=== PATIENT | female | born 1985 | race Caucasian/White ===

== ENCOUNTER 2020-06-28 08:33 | Outpatient (CLI) | payer BC, SELFPAY ==
[2020-07-01 21:07] LABS: SARS-CoV-2 RNA Undetected (Undetected); SARS-CoV-2 Specimen Source Nasopharynx
== END 2020-06-28 08:53 ==
PROVIDERS: PCP Physician Assistant; Visit Provider Physician Assistant
DX: Z20.828 Contact with and (suspected) exposure to other viral communicable diseases (principal)
CPT/HCPCS: U0003

== ENCOUNTER 2023-12-13 13:56 | Emergency (ER) | payer BC, SELFPAY ==
[2023-12-13] VITALS (26 sets, daily range): BP systolic 120–193; BP diastolic 67–110; PULSE 87–112; RESP 14–28; TEMP 36.7; O2SAT 96–100
--- NOTE | 2023-12-13 15:00 | RT.EKG_ITS ---
APPROVED REPORT Exam: Resting ECG Reason for Exam: HTN Patient Location: E HR:95 bpm ECG Measurements Heart Rate 95 AXIS ND 143 P 58 QRSd 82 QRS 47 QT 350 T 10 QTc 440 Conclusion Sinus rhythm 95 normal axis no stemi
--- NOTE | 2023-12-13 15:04 | ED.GENADUL_ITS ---
Discharge Plan Discharge Details Chief Complaint: GenMedical Primary Care Provider: Te Fan ED Provider: Helena Rutledge Home Meds and New Rx's Prescriptions: No Action etonogestrel-ethinyl estradiol [NuvaRing] 0.12-0.015 mg/24 hr ring 1 vag ring vaginal Q4W Rx Instructions: leave in place for 3 weeks of a 4-week cycle albuterol sulfate [ProAir HFA] 90 mcg/actuation HFA aerosol inhaler 2 puff inhalation Q6H PRN thyroid (pork) [[place] Thyroid] 60 mg tablet 60 mg PO DAILY ergocalciferol (vitamin D2) 1,250 mcg (50,000 unit) capsule 1,250 mcg PO .3x week insulin lispro [Humalog KwikPen Insulin] 100 unit/mL insulin pen 80 - 120 unit subcut TID insulin glargine U-300 conc [Toujeo Max U-300 SoloStar] 300 unit/mL (3 mL) insulin pen 30 unit subcut BID metformin 850 mg tablet 850 mg PO BID omeprazole 20 mg capsule,delayed release(DR/EC) 20 mg PO DAILY PRN famotidine 1 tab PO BID apple cider vinegar 1 tab PO DAILY HPI General Date/Time Provider Initiated Documentation: 12/13/23 14:48 . HPI Narrative: Miladys is a 38-year-old female with history of T1DM, GERD, and hypothyroidism who presents to the emergency department for evaluation of hypertension. She reports that her blood pressure was elevated at her last PCP appointment, so she has been checking it at home. Says her blood pressure has been consistently above 150, says that according to the chart he has been in the stage II hypertension category. Her PCP became worried and told her to come to the emergency department. She reports that she has had some headaches over the last week, says they have generalized headaches that are resolved with Tylenol. Denies vision changes, recent illness such as congestion, sore throat, cough, chest pain, change in baseline nausea/abdominal discomfort (is currently being worked up for gastroparesis), change in bowel or bladder function, rashes. She has a significant family history of cardiovascular disease, says her mother is on antihypertensives, but is not sure which ones. Related Data Home Medications Medication Instructions Recorded Confirmed albuterol sulfate 90 mcg/actuation 2 puff inhalation Q6H PRN 06/26/21 12/13/23 aerosol inhaler (ProAir HFA) ergocalciferol (vitamin D2) 1,250 1,250 mcg PO .3x week 06/26/21 12/13/23 mcg (50,000 unit) capsule etonogestrel 0.12 mg-ethinyl 1 vag ring vaginal Q4W 06/26/21 12/13/23 estradiol 0.015 mg/24 hr vaginal ring (NuvaRing) insulin glargine U-300 conc 300 30 unit subcut BID 06/26/21 12/13/23 unit/mL (3 mL) subcutaneous pen (Toujeo Max U-300 SoloStar) insulin lispro 100 unit/mL 80 - 120 unit subcut TID 06/26/21 12/13/23 subcutaneous pen (Humalog KwikPen (U-100) Insulin) metformin 850 mg tablet 850 mg PO BID 06/26/21 12/13/23 thyroid (pork) 60 mg tablet 60 mg PO DAILY 06/26/21 12/13/23 ([place] Thyroid) omeprazole 20 mg capsule,delayed 20 mg PO DAILY PRN 06/27/21 12/13/23 release apple cider vinegar 1 tab PO DAILY 12/13/23 12/13/23 famotidine 1 tab PO BID 12/13/23 12/13/23 Allergies Allergy/AdvReac Type Severity Reaction Status Date / Time No Known Allergies Allergy Verified 12/13/23 14:53 General Stated Complaint: GenMedical ERICA: 4 Review of Systems Narrative: see HPI Exam Const General: cooperative, healthy appearing, comfortable and no acute distress HENNM Head: normal to inspection Mouth: moist mucous membranes Resp Effort & Inspection: normal respiratory effort and able to speak in complete sentences Auscultation: clear to auscultation bilaterally Cardio Rate: regular rate Rhythm: regular rhythm GI Inspection: normal to inspection Palpation: soft and nontender Extrem General: no pedal edema Course Vital Signs Vital signs: Vital Signs Temperature 36.7 C 12/13/23 14:06 Pulse 112 H 12/13/23 14:06 Respiratory Rate 18 12/13/23 14:06 Blood Pressure 193/99 H 12/13/23 14:06 Pulse Oximetry 97 12/13/23 14:06 Temperature 36.7 C 12/13/23 14:50 Temperature Source Tympanic 12/13/23 14:50 Pulse 112 H 12/13/23 14:50 Respiratory Rate 16 12/13/23 14:51 Respiratory Effort Labored 12/13/23 14:52 Respiratory Depth Normal 12/13/23 14:51 Respiratory Pattern Normal 12/13/23 14:51 Blood Pressure 193/99 H 12/13/23 14:50 Blood Pressure Position Sitting 12/13/23 14:50 Pulse Oximetry 97 12/13/23 14:50 Oxygen Delivery Method Room Air 12/13/23 14:50 Oxygen Flow Rate 0 12/13/23 14:50 Lab/Test Results Lab/Test Results: Laboratory Tests Range/Units 12/13/23 15:07 WBC (4.4-10.8) 10^3/uL 7.76 RBC (3.93-5.22) 10^6/uL 4.90 Hgb (11.2-15.7) g/dL 14.4 Hct (36.0-46.0) % 44.0 MCV (80-95) fL 90 MCH (27.0-33.0) pg 29.4 MCHC (32.0-36.0) % 32.7 RDW (11.7-14.6) % 12.3 Plt Count (130-400) 10^3/uL 330 MPV (8.0-11.0) fL 10.4 Immature Gran % 0.3 Neutrophils % 60.4 Lymphocytes % 29.8 Monocytes % 4.4 Eosinophils % 4.5 Basophils % 0.6 Nucleated RBC % (0.0-0.3) % 0.0 Absolute Neutrophils (1.2-6.7) 10^3/uL 4.69 Absolute Lymphocytes (1.2-3.4) 10^3/uL 2.31 Absolute Monocytes (0.1-0.8) 10^3/uL 0.34 Absolute Eosinophils (0.0-0.7) 10^3/uL 0.35 Absolute Basophils (0.0-0.2) 10^3/uL 0.05 Sodium Cancelled Potassium Cancelled Chloride Cancelled Carbon Dioxide Cancelled Anion Gap Cancelled BUN Cancelled Creatinine Cancelled Est GFR (CKD-EPI 2020) Cancelled Glucose Cancelled Calcium Cancelled TSH Cancelled Medical Decision Making Miladys is a 38-year-old female with history of T1DM, GERD, and hypothyroidism who presents to the emergency department for evaluation of hypertension. She reports that her blood pressure was elevated at her last PCP appointment, so she has been checking it at home. Says her blood pressure has been consistently above 150, says that according to the chart he has been in the stage II hypertension category. Her PCP became worried and told her to come to the emergency department. She reports that she has had some headaches over the last week, says they have generalized headaches that are resolved with Tylenol. Denies vision changes, recent illness such as congestion, sore throat, cough, chest pain, change in baseline nausea/abdominal discomfort (is currently being worked up for gastroparesis), change in bowel or bladder function, rashes. She has a significant family history of cardiovascular disease, says her mother is on antihypertensives, but is not sure which ones. Physical exam very reassuring. Patient is alert and interactive, no acute distress. Easy work of breathing, lung sounds clear bilaterally. Normal heart sounds. Abdomen soft, nondistended, nontender to palpation. No obvious pedal edema. DDx includes was not limited to essential hypertension, target endorgan damage such as kidney dysfunction, thyroid dysfunction. No red flags concerning for intracerebral hemorrhage or heart failure. I independently interpreted the following tests: EKG reassuring, normal sinus rhythm with rate 95. No changes consistent with acute ischemia; normal VA and QT intervals. CBC reassuring. On arrival to the emergency department patient's blood pressure was very elevated at 193/99 with tachycardia, heart rate 112. She did appear anxious during assessment. After resting in room, blood pressure decreased to 141/71 with heart rate of 100. (previous notes indicate tachycardia of 100 bpm at PCP's office in 2018 and 112 at ENT visit in 2020) Quality:SDOH Health Related Social Needs: No Data to Display PFSH All Active Problems Abnormal auditory perception of both ears (Acute) Hypothyroidism (Chronic) Asthma (Chronic) Vitamin D deficiency (Acute) Fatigue (Acute) DM type 1 (diabetes mellitus, type 1) (Acute) Medical History Abnormal auditory perception of both ears Asthma DM type 1 (diabetes mellitus, type 1) Fatigue GERD (gastroesophageal reflux disease) Hypothyroidism Vitamin D deficiency Family History Mother Heart disease Diabetes Social History Smoking/Tobacco Use Status: Never Smoking risk assessment performed?: Yes Alcohol Intake: never Drug use: Never Substance use type: does not use PAWSS Have you Been Recently Intoxicated or Drunk Within the Last 30 days?: No Have you Ever Experienced Previous Episodes of Alcohol Withdrawal?: No Have you ever Experienced Withdrawal Seizures?: No Have you ever Experienced Delirium Tremens(DT)s?: No Have you ever undergone Alcohol Rehabilitation Treatment (i.e, inpt ot outpatient treatment programs)?: No Have you ever Experienced Blackouts?: No Have you ever Combined Alcohol with other Downers within the last 90 days?: No Have you ever Combined Alcohol with any other Substance of Abuse during the last 90 days?: No Result: 0
[2023-12-13 15:17] LABS: Abs Immature Grans 0.02 10^3/uL (0.0-0.06); Absolute Basophil Count 0.05 10^3/uL (0.0-0.2); Absolute Eosinophil Count 0.35 10^3/uL (0.0-0.7); Absolute Lymphocyte Count 2.31 10^3/uL (1.2-3.4); Absolute Monocyte Count 0.34 10^3/uL (0.1-0.8); Absolute Neutrophil Count 4.69 10^3/uL (1.2-6.7); Basophils % 0.6; Eosinophils % 4.5; HGB 14.4 g/dL (11.2-15.7); Immature Grans % 0.3; Lymphocytes % 29.8; MCH 29.4 pg (27.0-33.0); MCHC 32.7 % (32.0-36.0); MCV 90 fL (80-95); MPV 10.4 fL (8.0-11.0); Monocytes % 4.4; Neutrophils % 60.4; Platelet Count 330 10^3/uL (130-400); RDW 12.3 % (11.7-14.6); RDW-SD 40.4 fL; WBC 7.76 10^3/uL (4.4-10.8)
[2023-12-13 15:58] LABS: Bilirubin Negative (Negative); Blood Negative (Negative); Clarity Sl Cloudy (Clear); Glucose 100 mg/dL (Negative); Ketones Trace mg/dL (Negative); Leukocyte Esterase Trace (Negative); Nitrite Negative (Negative); Specific Gravity >= 1.030 (1.005-1.025)
[2023-12-13 16:10] LABS: RBC 0-2 HPF (0-2)
[2023-12-13 16:11] LABS: Bacteria Moderate HPF (Negative); C & S Indicated? No/Sq. Contamination; Casts Negative LPF (Negative); Crystals Negative HPF (Negative); Epithelial Cells Many HPF (Negative); Mucus Negative (Negative)
[2023-12-13 17:49] LABS: BUN 11 mg/dL (7-18); CREATININE 0.8 mg/dL (0.55-1.02); Calcium 8.9 mg/dL (8.5-10.1); Chloride 106 mmol/L (98-107); Estimated GFR 97.87 (mL/min/1.73m2); Glucose 84 mg/dL (74-106); Potassium 3.9 mmol/L (3.5-5.1); Sodium 143 mmol/L (136-145); TSH (W/Ref FT4) 3.92 uIU/mL (0.36-3.74)
[2023-12-13 18:05] LABS: FREE T4 0.78 ng/dL (0.76-1.46)
--- NOTE | 2023-12-14 08:00 | NUR.NOTE ---
Accessed pt chart to determine number of EKG orders. Duplicate order cancelled. Nursing Note:
== END 2023-12-13 18:16 | disposition home or self-care (01) ==
PROVIDERS: Nurse Practitioner Family; Emergency Provider Physician Assistant; PCP Physician Assistant
DX: E10.9 Type 1 diabetes mellitus without complications; Z86.79 Personal history of other diseases of the circulatory system; Z87.19 Personal history of other diseases of the digestive system; Z86.39 Personal history of other endocrine, nutritional and metabolic disease; Z82.49 Family history of ischemic heart disease and other diseases of the circulatory system; R51.9 Headache, unspecified; I10 Essential (primary) hypertension
CPT/HCPCS: 36415; 80048; 81025; 93005; 99283; 81003; 81015; 84439; 84443; 85025; 93010

== ENCOUNTER 2024-04-03 01:08 | Emergency (ER) | payer BC, SELFPAY ==
[2024-04-03 01:14] VITALS: BP 159/84; PULSE 84; RESP 16; TEMP 36.6; O2SAT 100
--- NOTE | 2024-04-03 01:20 | W.ED.GENAD ---
Discharge Plan Disposition Patient Disposition: Home Condition: Improving Discharge Details Clinical Impression: Calculus of ureterovesical junction (UVJ) Primary Care Provider: Te Fan ED Provider: Declan Bustos Holden Meds and New Rx's Prescriptions: New tamsulosin 0.4 mg capsule 0.4 mg PO DAILY Qty: 14 0RF oxycodone 5 mg tablet 5 mg PO Q8H PRN (Reason: pain) Qty: 6 0RF Continued etonogestrel-ethinyl estradiol [NuvaRing] 0.12-0.015 mg/24 hr ring 1 vag ring vaginal Q4W Rx Instructions: leave in place for 3 weeks of a 4-week cycle albuterol sulfate [ProAir HFA] 90 mcg/actuation HFA aerosol inhaler 2 puff inhalation Q6H PRN thyroid (pork) [[place] Thyroid] 60 mg tablet 60 mg PO DAILY ergocalciferol (vitamin D2) 1,250 mcg (50,000 unit) capsule 1,250 mcg PO .3x week insulin lispro [Humalog KwikPen Insulin] 100 unit/mL insulin pen 80 - 120 unit subcut TID insulin glargine U-300 conc [Toujeo Max U-300 SoloStar] 300 unit/mL (3 mL) insulin pen 30 unit subcut BID metformin 850 mg tablet 850 mg PO BID omeprazole 20 mg capsule,delayed release(DR/EC) 20 mg PO DAILY PRN famotidine 1 tab PO BID apple cider vinegar 1 tab PO DAILY losartan 50 mg tablet 50 mg PO DAILY Patient Comments: TAKE ONE TABLET BY MOUTH EVERY DAY pantoprazole 40 mg tablet,delayed release (DR/EC) 80 mg PO DAILY Patient Comments: TAKE ONE TABLET BY MOUTH EVERY DAY 30 MIN BEFORE SUPPER rosuvastatin 10 mg tablet 10 mg PO DAILY Patient Comments: TAKE ONE TABLET BY MOUTH AT BEDTIME Discharge Instructions Instructions: Kidney stones in adults, Taking Opioids Safely, Opioids for Short-Term Treatment of Pain ED Additional Instructions: You were seen in the ED for sudden onset of right-sided pain which was found to be a kidney stone in the distal ureter. There is no evidence of infection. Please take the tamsulosin daily to try to help with stone passage. Drink plenty of fluids to stay hydrated. Strain your urine so that you know when the stone has passed. Take acetaminophen 1 g every 8 hours [id number]. Use oxycodone only if needed for severe pain. Follow-up with primary care or if no stone passage by end of the week urology. Return to the ED for any worsening pain, fever, persistent vomiting, other concerns. Referrals: Paulo Nuñez MD [ [facility] STAFF PHYSICIAN] - Te Fan [Primary Care Provider] - [facility] General Mode of arrival: ambulatory. Date/Time Provider Initiated Documentation: 04/03/24 01:20. Limitations to Documentation: no limitations. Information obtained by: patient. HPI Narrative: Patient presents to ED with right back and flank pain now radiating to the right lower quadrant. Patient with onset of symptoms at around 9 or 10 PM this evening. Pain is sharp and stabbing in nature and becoming more severe. It is associated with nausea and vomiting. She is reporting urinary frequency and urgency but no dysuria or hematuria. Denies any fever, chills, cough, chest pain, shortness of breath. No prior history of renal colic. Related Data Home Medications Medication Instructions Recorded Confirmed albuterol sulfate 90 mcg/actuation 2 puff inhalation Q6H PRN 06/26/21 04/03/24 aerosol inhaler (ProAir HFA) ergocalciferol (vitamin D2) 1,250 1,250 mcg PO .3x week 06/26/21 04/03/24 mcg (50,000 unit) capsule etonogestrel 0.12 mg-ethinyl 1 vag ring vaginal Q4W 06/26/21 04/03/24 estradiol 0.015 mg/24 hr vaginal ring (NuvaRing) insulin glargine U-300 conc 300 30 unit subcut BID 06/26/21 04/03/24 unit/mL (3 mL) subcutaneous pen (Toujeo Max U-300 SoloStar) insulin lispro 100 unit/mL 80 - 120 unit subcut TID 06/26/21 04/03/24 subcutaneous pen (Humalog KwikPen (U-100) Insulin) metformin 850 mg tablet 850 mg PO BID 06/26/21 04/03/24 thyroid (pork) 60 mg tablet 60 mg PO DAILY 06/26/21 04/03/24 ([place] Thyroid) omeprazole 20 mg capsule,delayed 20 mg PO DAILY PRN 06/27/21 04/03/24 release apple cider vinegar 1 tab PO DAILY 12/13/23 04/03/24 famotidine 1 tab PO BID 12/13/23 04/03/24 losartan 50 mg tablet 50 mg PO DAILY 04/03/24 04/03/24 oxycodone 5 mg tablet 5 mg PO Q8H PRN pain #6 tabs 04/03/24 pantoprazole 40 mg tablet,delayed 80 mg PO DAILY 04/03/24 04/03/24 release rosuvastatin 10 mg tablet 10 mg PO DAILY 04/03/24 04/03/24 tamsulosin 0.4 mg capsule 0.4 mg PO DAILY #14 caps 04/03/24 Previous Rx's Medication Instructions Recorded oxycodone 5 mg tablet 5 mg PO Q8H PRN pain #6 tabs 04/03/24 tamsulosin 0.4 mg capsule 0.4 mg PO DAILY #14 caps 04/03/24 Allergies Allergy/AdvReac Type Severity Reaction Status Date / Time No Known Allergies Allergy Verified 04/03/24 01:19 General Stated Complaint: FlankPain ERICA: 3 Review of Systems Narrative: Per HPI Exam Narrative Exam Narrative: Const: Obese female in NAD but does appear pale and uncomfortable. VS per triage. HEENT: NC/AT. Normal facial exam. Neck: Supple. Trachea midline. Lungs: Normal respiratory effort. Lungs are clear. Cor: RRR without murmur. Good radial pulses. GI: Soft/ND. Mildly tender right lower quadrant no guarding or rebound. Neuro: A+O x 3. Normal speech, mentation, gait. Cranial nerves II - XII grossly intact. No gross motor or sensory deficit. Ext: No C/C/E. Course Vital Signs Vital signs: Vital Signs Temperature 98 F 04/03/24 01:14 Pulse 84 04/03/24 01:14 Respiratory Rate 16 04/03/24 01:14 Blood Pressure 159/84 H 04/03/24 01:14 Pulse Oximetry 100 04/03/24 01:14 Temperature 98 F 04/03/24 01:14 Temperature Source Temporal Artery Scan 04/03/24 01:14 Pulse 84 04/03/24 01:14 Respiratory Rate 16 04/03/24 01:14 Blood Pressure 159/84 H 04/03/24 01:14 Pulse Oximetry 100 04/03/24 01:14 Oxygen Delivery Method Room Air 04/03/24 01:14 Oxygen Flow Rate 0 04/03/24 01:14 Pain Level 10 04/03/24 01:14 Medical Decision Making Patient presenting to ED with acute onset of right back and flank pain now radiating to the right lower quadrant with associated nausea/vomiting. She appears pale and uncomfortable. She is minimally tender in the right lower quadrant. Symptoms consistent with renal colic, less likely pyelonephritis. Consider ovarian torsion but pain seems much higher than pelvis. Unlikely to be appendicitis. IV established and fluids started. Pain meds and antiemetics given. Laboratory studies and CT scan ordered. Patient's laboratory studies with a white count of 14.95. Hemoglobin is normal. Kidney function is normal. Glucose at 198 with a slight anion gap at 13.7. Liver function and lipase normal. negative. Patient with continued pain despite a dose of morphine and fluids. Ordered for ketorolac pending results of CT which was completed. CT scan per preliminary radiology report with a 3 to 4 mm UVJ stone on the right with mild hydro. Urinalysis with blood only no evidence of infection. Pain improved with ketorolac. Tamsulosin ordered. Patient would like to try to go home and see if she can pass stone on her own. Will hold off on further nonsteroidals as she is recently diagnosed with Nava's esophagus and is on 80 of pantoprazole. Acetaminophen [id number]. Tamsulosin daily. Oxycodone as needed for severe pain. Strain urine and drink plenty of fluids. Follow-up with urology end of week if she has not yet passed her stone. Return precautions provided. Lab Data Lab results reviewed: Yes I reviewed the patient's lab results. PFSH All Active Problems (Updated 04/03/24 @ 04:22 by Declan Bustos MD) Calculus of ureterovesical junction (UVJ) (Acute) Abnormal auditory perception of both ears (Acute) Vitamin D deficiency (Acute) Fatigue (Acute) Medical History Hypertension Hyperlipidemia DM type 1 (diabetes mellitus, type 1) Asthma Hypothyroidism GERD (gastroesophageal reflux disease) Family History Mother Heart disease Diabetes Social History Smoking/Tobacco Use Status: Never Smoking risk assessment performed?: Yes Alcohol Intake: never Drug use: Never Substance use type: does not use
--- NOTE | 2024-04-03 01:30 | DI.CT_ITS ---
Exam(s) CT RENAL COLIC WO EXAM: CT RENAL COLIC WO CLINICAL HISTORY: right back/flank pain radiating to front. TECHNIQUE: Imaging Protocol: Axial computed tomography images with coronal and sagittal reformatted images were created and reviewed. CONTRAST MATERIAL: Noncontrast COMPARISON: No exams were available for comparison FINDINGS: ABDOMEN: Lung Bases: Normal where visualized. Small hiatal hernia. Liver: Normal attenuation. No measurable mass. Gallbladder and biliary tract: No radiodense calculus or dilation. Pancreas: Normal density, no calcifications or inflammatory process. Spleen: Normal. Kidneys: Normal size, contour and axis. Four millimeter stone at the right ureteral with vesicle junc tion causing mild right hydronephrosis. No additional calculi are identified no masses seen. Adrenal glands: No masses seen. Abdominal Aorta: Abdominal portion non-dilated. Soft tissues: Unremarkable. PELVIS: Bladder: Nearly empty, not evaluated. No evidence of stones.No visible mass. Bowel: No obstruction or bowel wall thickening. Reproductive: Unremarkable. Peritoneal cavity: No ascites, collection or mesenteric inflammatory response. Bones: No fracture or destructive lesion. Degenerative disc changes noted at L5-S1. IMPRESSION: 4 millimeter calculus at the right ureteral junction causing mild hydronephrosis. RADIATION DOSE DELIVERED: Total DLP DATA REPOSITORY: All CT scans at this facility are submitted to the National Radiology Data Registry (NRDR) Dose Index Registry (DIR) with the [employer] (A[employer]). RADIATION OPTIMIZATION: All CT scans at this facility use at least one of these dose optimization te chniques: automated exposure control; mA and/or kV adjustment per patient size (includes targeted exa ms where dose is matched to clinical indication); or iterative reconstruction.
[2024-04-03 01:32] VITALS: O2SAT 99
[2024-04-03 01:40] VITALS: O2SAT 99
[2024-04-03 01:56] VITALS: O2SAT 98
[2024-04-03] MEDS: MORPHine 4 MG/ML SYR IVP (02:39)
[2024-04-03] MEDS: Ondansetron 4 MG/2 ML VIAL IVP (02:39)
[2024-04-03] MEDS: Lactated Ringers 1,000 ML 1000 ML IV (02:39)
[2024-04-03 02:53] LABS: Lipase 23 U/L (16-77)
[2024-04-03 02:56] LABS: HCG Qual (Serum) Negative
[2024-04-03 02:57] LABS: ALT 32 U/L (14-59); AST 21 U/L (15-37); Albumin 3.9 g/dL (3.4-5.0); Alkaline Phosphatase 97 U/L (46-116); Anion Gap 13.7 mmol/L (3-11); BUN 14 mg/dL (7-18); Bilirubin, Total 0.4 mg/dL (0.2-1.0); CO2 24.3 mmol/L (21.0-32.0); Calcium 9.2 mg/dL (8.5-10.1); Chloride 105 mmol/L (98-107); Estimated GFR 74.88 (mL/min/1.73m2); Glucose 198 mg/dL (74-106); Potassium 3.8 mmol/L (3.5-5.1); Sodium 143 mmol/L (136-145); Total Protein 7.9 g/dL (6.4-8.2)
[2024-04-03] MEDS: Ketorolac 15 MG/ML VIAL IVP (03:03)
--- OUTSIDE RECORDS SUMMARY | 2024-04-03 03:17 | XMS_ITS | Patient Health Record ---
Author Name Unknown Organization [facility] Address [address] [place] [address] Care Team Providers Care Sealer Sander Name Role Phone Liz Mcdonough Primary Care Provider Obie Boggs Unavailable [phone] Allergies No Known Allergies Results Component Value Reference Range Notes T3, FREE Reviewed date:07/01/2023 02:18:54 PM Interpretation: Performing Lab: Notes/Report: T3 FREE 6.2 2.8-5.3 pg/mL TESTING PERFORMED OR REFERRED BY: The [address] [address] T4, FREE Reviewed date:07/01/2023 02:19:01 PM Interpretation: Performing Lab: Notes/Report: T4, FREE 1.3 0.8-2.2 ng/dL TESTING PERFORMED OR REFERRED BY: The [address] [address] TSH Reviewed date:07/01/2023 02:19:09 PM Interpretation: Performing Lab: Notes/Report: The results of this assay can be falsely lowered due to the consumption of Biotin. TSH 1.05 0.47-4.68 mIU/L TESTING PERFORMED OR REFERRED BY: The [address] [address] COMPREHENSIVE METABOLIC PA LIZ Reviewed date:07/01/2023 02:17:35 PM Interpretation: Performing Lab: Notes/Report: Lipid panel Reviewed date:07/01/2023 02:17:44 PM Interpretation: Performing Lab: Notes/Report: a1c Reviewed date:07/01/2023 02:19:21 PM Interpretation: Performing Lab: Notes/Report: VITAMIN B12 Reviewed date:01/29/2024 03:41:55 PM Interpretation: Performing Lab: Notes/Report: VITAMIN B12 447 211-911 pg/mL TESTING PERFORMED OR REFERRED BY: The [address] [address] VITAMIN D TOTAL, 25 OH Reviewed date:01/29/2024 03:41:55 PM Interpretation: Performing Lab: Notes/Report: VITAMIN D TOTAL 32 30-100 ng/mL Vitamin D 25,OH Interpretive Ranges: ------ Deficiency: <10.0 ng/mL Insufficiency: 10.0 - 30.0 ng/mL Sufficiency: 30.0 - 100.0 ng/mL Toxicity: >100.0 ng/mL TESTING PERFORMED OR REFERRED BY: The [address] [address] COMPREHENSIVE METABOLIC PA LIZ Reviewed date:01/29/2024 03:41:55 PM Interpretation: Performing Lab: Notes/Report: Patient Fasting?:N Lipid panel Reviewed date:01/29/2024 03:41:55 PM Interpretation: Performing Lab: Notes/Report: T4, FREE Reviewed date:01/29/2024 03:41:55 PM Interpretation: Performing Lab: Notes/Report: T4, FREE 1.3 0.8-2.2 ng/dL TESTING PERFORMED OR REFERRED BY: The [address] [address] a1c Reviewed date:01/29/2024 03:41:55 PM Interpretation:6.9 Performing Lab: Notes/Report: TSH Reviewed date:01/29/2024 03:41:55 PM Interpretation: Performing Lab: Notes/Report: The results of this assay can be falsely lowered due to the consumption of Biotin. TSH 1.05 0.47-4.68 mIU/L TESTING PERFORMED OR REFERRED BY: The [address] [address] T3, FREE Reviewed date:01/29/2024 03:41:55 PM Interpretation: Performing Lab: Notes/Report: T3 FREE 6.8 2.8-5.3 pg/mL TESTING PERFORMED OR REFERRED BY: The [address] [address] MICROALBUMIN Reviewed date:01/29/2024 03:41:55 PM Interpretation: Performing Lab: Notes/Report: CREATININE, UR 210.4 See Note mg/dL NOTE: Reference range not established URINE ALBUMIN TO CREATININE RATIO 10 <30 ug/mg Creatinine Urine Albumin/Creatinine Ratio: Normal: <30 ug/mg Creatinine Moderately increased albuminuria: 30-300 ug/mg Creatinine Severely increased albuminuria: >300 ug/mg Creatinine TESTING PERFORMED OR REFERRED BY: The [address] [address] a1c Reviewed date:09/28/2023 05:36:02 PM Interpretation: Performing Lab: Notes/Report: VITAMIN D TOTAL, 25 OH Reviewed date:07/01/2023 02:14:39 PM Interpretation: Performing Lab: Notes/Report: VITAMIN D TOTAL 33 30-100 ng/mL Vitamin D 25,OH Interpretive Ranges: ------ Deficiency: <10.0 ng/mL Insufficiency: 10.0 - 30.0 ng/mL Sufficiency: 30.0 - 100.0 ng/mL Toxicity: >100.0 ng/mL TESTING PERFORMED OR REFERRED BY: The [address] [address] NUCLEAR MED : Gastric Emptyi ng Scan Reviewed date:11/22/2023 02:22:30 PM Interpretation: Performing Lab: Notes/Report: Reason For Referral Reason Note in chart ---- L lluvia standing type 1 diabetes diagnosis now with mildly delayed gastric emptying. We have not started any medication. Pt with many questions about disease course and potential treatments. Diagnosis 1 Delayed gastric empt yifan (K30) Referral Organization [facility] Referring Provider First Name Liz Referring Provider Last Name Sharonda Referring Provider Speciality Family Med icine Referred Provider [place], [facility] roenterology Referred Provider Specialty Gastroentero logy General Notes Liz Mcdonough 024 02:45:53 PM > referral faxed Baron STACY Jasmina 12/17/2023 12:34:37 PM >lmom for update [phone]., Marii Draper 01/10/2024 04:38:30 PM >Pt was seen 12/28/2023 note in chart Referral Priority Routine Referral Appointment Date 12/28/2023 Reason SCHED 01/31/24--- Lo ng standing type 1 diabetes diagnosis now with mildly delayed gastric emptying. We have not started any medication. Pt with many questions about disease course and potential treatments. Diagnosis 1 Delayed gastric empt yifan (K30) [facility]erral Organization [facility] Referring Provider First Name Liz Referring Provider Last Name Sharonda Referring Provider [facility] Referred Provider [facility], Gastroenterology Referred Provider Specialty Gastroentero logy General Notes Marii Draper 0 11/29/2023 05:49:50 PM >Where would you like me to send this referral? It doesnt show the facility. [facility] or [facility]?, Liz Mcdonough 11/30/2023 09:39:10 AM >Did my note get deleted? I faxed it last night and I actually included the link to the practice where I sent it in my annotation so that this would not happen. [email or web address] Unless the fax failed we should not need to send. Baron STACY Jasmina 11/30/2023 10:27:43 AM >Note was erased, referral already faxed successfully, added [facility] in [place].Baron Jasmina 12/17/2023 03:20:36 PM >SCHED 01/31/24 AT 1:30 Referral Priority Routine Referral Appointment Date 01/31/2024 Medications Medication SIG (Take, Route, Frequency, Duration) Notes Start Date End Date Status Insulin Syringe-Needle U-100 31G X 5/16 1 ML as directed with humalog subcutaneously three times a day for 30 days 12/29/2019 Active Toujeo SoloStar 300 UNIT/ML 48 units Subcutaneous daily for 84 days Active Cetirizine HCl 10 MG 1 tablet Orally Onc e a day for 30 day(s) Active Winston Thyroid 60 MG 1 tablet Orally six days a week for 90 days 05/21/2023 Active Ondansetron HCl 4 MG 1 tablet Orally reynold ry 6 hours as needed for nausea for 5 days 11/26/2023 Active Ergocalciferol 06223 UNIT 1 capsule Orally Twice monthly for 84 days 09/23/2020 03/06/2025 Active Pantoprazole Sodium 40 MG 1 tablet Orally every evening 01/08/2024 Active Dexcom G6 Asp Net Mvc Developer - as directed for 30 day(s) 03/19/2022 Active BD Pen Needle Mini U/F 31G X 5 MM as directed with toujeo pen subcutaneously daily for 90 days 04/13/2019 Active Omeprazole 20 MG 1 capsule 30 minutes before morning meal Orally Once a day 10/24/2020 Active OneTouch Verio - as directed In Vitro for TID testing for 90 days Active Omnipod 5 G6 Intro (Gen 5) - as directed for 30 days 01/11/2024 Acti ve Rosuvastatin Calcium 10 MG 1 tablet Orally Once a day at bedtime for 90 days 07/09/2023 Active Losartan Potassium 50 MG TAKE ONE TABLET BY MOUTH EVERY DAY Oral Active Famotidine 20 MG 1 tablet Orally twic e day 08/27/2022 Active Dexcom G6 Transmitter - as directed as d irected for 90 days 03/19/2022 Active Albuterol Sulfate HFA 108 (90 Base) MCG/ACT 1-2 puffs as needed Inhalation every 4 hrs for 30 days 01/11/2024 Active NuvaRing 0.12-0.015 MG/24HR 1 ring Vaginal for 3 weeks then remove for 1 week prior to placing new ring for 84 days Active metFORMIN HCl 850 MG 1 tablet with a ranjan l Orally twice a day for 90 days Active Dexcom G6 Sensor - as directed as direc julisa for 90 days 07/10/2022 Active Multivitamin - 1 tablet Orally Once a day for 30 day(s) Not-Taking Omnipod 5 G6 Pod (Gen 5) - change every 48-72 hours, for use with Humalog dosing for 90 days 01/11/2024 Active HumaLOG 100 UNIT/ML 80-120 units Subcutaneous daily for 90 days Active OneTouch Douglas Apodaca Active Immunizations Vaccine Route Administration Date Status Comme nts Tdap Unknown 05/26/2013 Administered Tdap IM Intramuscular 01/11/2024 Administered Pneumococcal PPV 23 (adult) Unknown 08/15/2004 Administered INFLUENZA ADULT SINGLE DOSE IM Intramuscular 09/30/2018 Administered INFLUENZA ADULT SINGLE DOSE IM Intramuscular 07/14/2019 Administered INFLUENZA ADULT SINGLE DOSE Unknown 09/22/2020 Administered Social History Tobacco Use: Social History Observation Description Date Details (start date - stop date) Never Smoker NA - NA TOBACCO Question Answer Notes STATUS Never smoker Problems Problem Type SNOMED Code ICD Code Onset Dates Problem Status W/U Status Risk Notes Problem Hyperglycemia due to type 1 diabetes mellitus (026301423009224) Type 1 diabetes mellitus with hyperglycemia (E10.65) Active confirmed Problem Type I diabetes mellitus without complication (686934309) Type 1 diabetes mellitus without complications (E10.9) Active confirmed Problem 360071574 Mixed hyperlipidemia (E78.2) Active confirmed Problem Polyneuropathy (74096103) Polyneuropathy, unspecified (G62.9) Active confirmed Problem Eustachian tube disorder (95521132) Unspecified Eustachian tube disorder, left ear (H69.92) Active confirmed Problem Noncompliance with medication regimen (finding) (813267128) Patient's other noncompliance with medication regimen (Z91.14) Active confirmed Problem Fatigue (77063279) -Fatigue (R53.83) Active con firmed Problem 096930917972908 BMI 30.0-34.9 (E66.9) Active confirmed Problem 316229747 GERD without esophagitis (K21.9) Active confirmed Problem Vitamin D deficiency (50763308) Vitamin D deficiency (E55.9) Active confirmed Problem Mild intermittent asthma (976757197) Mild intermittent asthma without complication (J45.20) Active confirmed Problem Long-term current use of insulin (215191872) terminal operator current use of insulin (Z79.4) Active confirmed Problem 0896343962857 Tinnitus of both ears (H93.13) Active confirmed Problem Muscle spasm (67974372) Muscle spasm (M62.838) Active confirmed Problem 87070091 Non-seasonal allergic rhinitis, unspecified trigger (J30.89) Active confirmed Problem Mild intermittent asthma (940845727) Asthma, mild intermittent (J45.20) Active confirmed Problem Hypothyroidism (22186949) Hypothyroidism, secondary (E03.8) Active confirmed Problem 955055521 Delayed gastric emptying (K30) Active confirmed Problem Adult health examination (740103175) -Health Maintenance (Z00.00) Active confirmed Problem Finding of therapeutic drug level (970274087) -Medication Maintenance (Z51.81) Active confirmed Problem 319962420 Decreased hearing, unspecified laterality (H91.90) Active confirmed Problem 67066935 Inattention (R41.840) Active confirmed Problem 744291173 Contracture, palmar fascia (M72.0) Active confirmed Problem 76518526 Primary hypertension (I10) Active confirmed Vital Signs Blood pressure diastolic 80 mm Hg 01/11/2024 Height 63.5 in 01/11/2024 Blood pressure systolic 135 mm Hg 01/11/2024 Weight 200 lbs 01/11/2024 BMI 34.87 kg/m2 01/11/2024 Encounters Encounter Location Date Provider Diagnosis [facility] [address] [place] [address] 04/07/2023 Liz Sharonda Type 1 diabetes mellitus with hyperglycemia E10.65 [facility] [address] [place] [address] 05/21/2023 [place] [facility] [address] [place] [address] 06/06/2023 Obie Boggs [facility] [address] [place] [address] 07/19/2023 Liz Fierroato [facility] [address] [place] [address] 11/22/2023 Lizdania FierroSharonda [facility] [address] [place] [address] 12/09/2023 Lizdania FierroSharonda [facility] [address] [place] [address] 01/08/2024 Lizdania FierroSharonda GERD without esophagitis K21.9 [facility] [address] [place] [address] 04/07/2023 Liz Sharonda [facility] [address] [place] [address] 05/20/2023 Liz Sharonda [facility] [address] [place] [address] 07/09/2023 Liz Sharonda [facility] [address] [place] [address] 07/22/2023 Liz Sharonda [facility] [address] [address] 10/01/2023 Liz Sharonda [facility] [address] [address] 10/17/2023 Liz Sharonda Type 1 diabetes mellitus with hyperglycemia E10.65 [facility] [address] [address] 10/23/2023 Liz Sharonda Hypothyroidism, secondary E03.8 [facility] [address] [address] 10/23/2023 Liz Sharonda [facility] [address] [address] 11/26/2023 Liz Sharonda [facility] [address] [address] 12/30/2023 Liz Sharonda Type 1 diabetes mellitus with hyperglycemia E10.65 and Mixed hyperlipidemia E78.2 [facility] [address] [address] 03/14/2024 Liz Sharonda Type 1 diabetes mellitus with hyperglycemia E10.65 [place] [address] [address] 01/11/2024 Liz Sharonda -Routine Exam Adult Z00.00 ; GERD without esophagitis K21.9 ; Type 1 diabetes mellitus with hyperglycemia E10.65 ; Hypothyroidism, secondary E03.8 ; Vitamin D deficiency E55.9 ; Mixed hyperlipidemia E78.2 ; Polyneuropathy, unspecified G62.9 ; Encounter for hepatitis C screening test for low risk patient Z11.59 ; -Immunization Z23 ; Primary hypertension I10 ; Uses vaginal contraceptive ring Z78.9 and Delayed gastric emptying K30 [place] [address] [employer] [address] [facility] [address] [place] [address] 07/09/2023 Liz Sharonda Type 1 diabetes mellitus with hyperglycemia E10.65 ; Mixed hyperlipidemia E78.2 ; Hypothyroidism, secondary E03.8 ; GERD without esophagitis K21.9 and Uses vaginal contraceptive ring Z78.[address] [place] [address] 10/14/2023 Liz Mcdonough Type 1 diabetes mellitus with hyperglycemia E10.65 and Chronic nausea R11.0 [place] [address] [address] [place] [address] 11/26/2023 Liz Mcdonough Delayed gastric emptying K30 Assessments Encounter Date Diagnosis (ICD Code) Assessment Notes Treatment Notes Treatment Clinical Notes 04/07/2023 Type 1 diabetes mellitus with hyperglycemia (ICD-10 - E10.65) 07/09/2023 Type 1 diabetes mellitus with hyperglycemia (ICD-10 - E10.65) will increase to 48 units on Toujeo to help get her A1c closer to goal without risking hypoglycemia. Will continue with her usual correction factor. She is considering so would have her reach out to OB in her area that does higher risk pregnancies because of her diabetes. Medication indication is reviewed, and patient questioned re side effects; Effectiveness assessed through history, and made active decision, with patient engagement to continue this treatment. Alternatives were discussed where applicable. 07/09/2023 Mixed hyperlipidemia (ICD-10 - E78.2) reviewed labs and recommended statin, recommended take CoQ10 60mg For patient's new medication(s) the dosing instructions, indications for use, and possible side effects were reviewed, and patient acknowledged an understanding of this information. 01/08/2024 GERD without esophagitis (ICD-10 - K21.9) 03/14/2024 Type 1 diabetes mellitus with hyperglycemia (ICD-10 - E10.65) 10/14/2023 Type 1 diabetes mellitus with hyperglycemia (ICD-10 - E10.65) She will work on better monitoring of blood sugars right after eating to see if we need to make adjustments in her correction factor/carb calculations since she is reluctant to increase long acting insulin due to prior low blood sugar. She will look at carb levels in her foods and continue working with advanced research programs director recommendations. 10/14/2023 Chronic nausea (ICD-10 - R11.0) This could be early presentation of gastroparesis so will check gastric emptying study to see if this can identify any issues. 10/17/2023 Type 1 diabetes mellitus with hyperglycemia (ICD-10 - E10.65) 12/30/2023 Type 1 diabetes mellitus with hyperglycemia (ICD-10 - E10.65) 11/26/2023 Delayed gastric emptying (ICD-10 - K30) Pt in [facility] and no GI specialists at [facility] so will refer to [facility] for further testing and longer term treatment options. Based on her personal reported history with dairy unlikely to be lactose intolerance or milk allergy and more likely lactase deficiency but will do lactose breath testing. Pt is aware that this breath test may not be offered by [facility] at this point. Will also order celiac panel just to make sure this is not a contributing factor. Pt educated that this cannot identify gluten sensitivty. Discussed the first 2 meds that we usually start (reglan and erythromycin) and that each have a long history of being used safely but also have some not great side effects. Because she has mild symptoms currently she will wait to see GI before considering medications. We will send in rx for ondansetron for her to use when she is having severe nausea that will prevent her from going to work. For patient's new medication(s) the dosing instructions, indications for use, and possible side effects were reviewed, and patient acknowledged an understanding of this information. 10/23/2023 Hypothyroidism, secondary (ICD-10 - E03.8) 01/11/2024 -Routine Exam Adult (ICD-10 - Z00.00) As appropriate to age and health status, reviewed patient's last PAP smear, lipid profile, mammogram, colon cancer screening, Tdap, shingles vaccine, pneumoccocal vaccine, bone density study, low dose chest CT and discussed accepted guidelines for each. Also discussed healthy lifestyle habits such as diet, exercise, sleep. 01/11/2024 GERD without esophagitis (ICD-10 - K21.9) Reviewed note from GI with pt and there is no mention of her stopping famotidine and that it appears he believes she is taking omeprazole every morning. Reviewed that PPI not usually a prn med especially now that GI has added a dose of a second med at night. Will follow up with GI as scheduled and clarify instructions with him. 01/11/2024 Type 1 diabetes mellitus with hyperglycemia (ICD-10 - E10.65) Has been able to get better glycemic control with use of CGM but still has some missed doses of insulin or has found that she gave herself too much/too little for her carb calculation so we will look into getting Omni Pod covered. She uses at least 3 short acting injections per day in addition to her long acting insulin. Has never had a pump in the past. She may need to see endo to set up pump as this is not something I have experience with especially if she is going to integrate her CGM with pump. Medication indication is reviewed, and patient questioned re side effects; Effectiveness assessed through history, and made active decision, with patient engagement to continue this treatment. Alternatives were discussed where applicable. 07/09/2023 Hypothyroidism, secondary (ICD-10 - E03.8) 12/30/2023 Mixed hyperlipidemia (ICD-10 - E78.2) 07/09/2023 GERD without esophagitis (ICD-10 - K21.9) 01/11/2024 Hypothyroidism, secondary (ICD-10 - E03.8) Will check levels and see if any dose changes needed. 01/11/2024 Vitamin D deficiency (ICD-10 - E55.9) 07/09/2023 Uses vaginal contraceptive ring (ICD-10 - Z78.9) 01/11/2024 Mixed hyperlipidemia (ICD-10 - E78.2) 01/11/2024 Polyneuropathy, unspecified (ICD-10 - G62.9) 01/11/2024 Encounter for hepatitis C screening test for low risk patient (ICD-10 - Z11.59) 01/11/2024 -Immunization (ICD-10 - Z23) 01/11/2024 Primary hypertension (ICD-10 - I10) Started on losartan for BP control by ND. Had been on lisinopril but changed due to having strange dreams. Did not provide refill as ND initiated med so they will continue to rx 01/11/2024 Uses vaginal contraceptive ring (ICD-10 - Z78.9) 01/11/2024 Delayed gastric emptying (ICD-10 - K30) 10/14/2023 Other This patient understands that this is a TELE-HEALTH assessment and management in lieu of an in-office [id number] visit. The patient agrees to this visit type, and understand that there will be a visit charge similar to in office visits. 11/26/2023 Other This patient understands that this is a TELE-HEALTH assessment and management in lieu of an in-office [id number] visit. The patient agrees to this visit type, and understand that there will be a visit charge similar to in office visits. Plan Of Treatment Future Test Test Name Order Date a1c 11/18/2023 a1c 02/16/2024 Next Appt Details Provider Name:Liz Mcdonough, 0 04/10/2024 09:10:00 AM, [address], [place], [address], Insurance Providers Payer Name Payer Address Payer Phone Subscriber Number Group Number Insured Name Patient Relationship to Insured Coverage Start Date Coverage End Date [facility] [address] [facility] [place] [address] [id number] Miladys Simpson Self - patient is the insured 3 Medical (General) History Medical History History ICD Code GERD DM Type I Fatigue Vitamin D defiency Asthma Hypothyroidsm COVID positive in september
[2024-04-03 03:19] LABS: Abs Immature Grans 0.03 10^3/uL (0.0-0.06); Absolute Basophil Count 0.06 10^3/uL (0.0-0.2); Absolute Eosinophil Count 0.19 10^3/uL (0.0-0.7); Basophils % 0.4 %; Eosinophils % 1.3 %; HGB 13.6 g/dL (11.2-15.7); Immature Grans % 0.2 %; Lymphocytes % 17.3 %; MCHC 32.4 % (32.0-36.0); MCV 93 fL (80-95); MPV 11.1 fL (8.0-11.0); Monocytes % 4.7 %; Neutrophils % 76.1 %; Platelet Count 374 10^3/uL (130-400); RBC 4.54 10^6/uL (3.93-5.22); RDW 12.4 % (11.7-14.6); RDW-SD 42.5 fL; WBC 14.95 10^3/uL (4.4-10.8)
[2024-04-03 03:21] LABS: Absolute Lymphocyte Count 2.59 10^3/uL (1.2-3.4); Absolute Neutrophil Count 11.38 10^3/uL (1.2-6.7)
[2024-04-03 04:02] LABS: Bilirubin Small (Negative); Blood Large (Negative); Clarity Cloudy (Clear); Glucose 250 mg/dL (Negative); Ketones 40 mg/dL (Negative); Leukocyte Esterase Negative (Negative); Nitrite Negative (Negative); Specific Gravity >= 1.030 (1.005-1.025); Urobilinogen 0.2 mg/dL (Up to 0.2); pH 5.5 (5-8)
[2024-04-03 04:05] VITALS: BP 140/72; PULSE 72; RESP 16; O2SAT 99
--- NOTE | 2024-04-03 04:07 | DI.VRAD_ITS ---
PROCEDURE INFORMATION: Exam: CT Abdomen And Pelvis Without Contrast Exam date and time: 04/03/2024 2:48 AM Age: 38 years old Clinical indication: Abdominal pain; Patient HX: Right back / flank pain radiating to front TECHNIQUE: Imaging protocol: Computed tomography of the abdomen and pelvis without contrast. COMPARISON: [facility] 11/17/2023 9:13 AM FINDINGS: Diaphragm: Small hiatal hernia. Liver: Normal. No mass. Gallbladder and bile ducts: Normal. No calcified stones. No ductal dilation. Pancreas: Unremarkable. Spleen: Normal. Adrenal glands: Normal. No mass. Kidneys and ureters: 3-4 mm obstructing stone at the right UVJ causing mild obstructive uropathy. Stomach and bowel: No bowel wall thickening or intestinal obstruction. Appendix: Normal appendix. Intraperitoneal space: Unremarkable. No pneumoperitoneum. No abscess. Vasculature: Unremarkable. Lymph nodes: Unremarkable. Urinary bladder: Unremarkable as visualized. Reproductive: Unremarkable as visualized. Bones/joints: Unremarkable. No acute fracture. Soft tissues: Unremarkable. IMPRESSION: 3-4 mm obstructing stone at the right UVJ causing mild obstructive uropathy. Dictated and Authenticated by: Ever Soliz MD. Ordering:SERG Manriquez MD
[2024-04-03 04:10] LABS: Bacteria Few HPF (Negative); Casts Negative LPF (Negative); Crystals Negative HPF (Negative); Epithelial Cells Moderate HPF (Negative); Mucus Moderate (Negative); RBC >50 HPF (0-2)
[2024-04-03 04:11] LABS: C & S Indicated? No/Sq. Contamination
[2024-04-03] MEDS: Tamsulosin 0.4 MG CAPCR PO (04:34)
--- NOTE | 2024-04-03 14:29 | NUR.NOTE ---
Nursing Note: Received call from pt reporting increased pain and vomiting/unable to tolerate PO. Pt was told by DR. Aguayo that we could call in something for the nausea, but if patients feeling worse she would be seen again. Pt states she is barely functioning at this point and would return to the ER for re-evaluation but does not want to be admitted. No prescription was called in, will have MD address when she arrives.
== END 2024-04-03 04:34 | disposition home or self-care (01) ==
PROVIDERS: Emergency Provider Emergency Medicine; PCP Physician Assistant
DX: N13.2 Hydronephrosis with renal and ureteral calculous obstruction (principal); I10 Essential (primary) hypertension; E78.5 Hyperlipidemia, unspecified; E10.9 Type 1 diabetes mellitus without complications; Z79.4 Long term (current) use of insulin
CPT/HCPCS: 36415; 80053; 83690; 96361; 96374; 96375; 99284; 74176; 81003; 81015; 84703; 85025; J1885; J2270; J2405

== ENCOUNTER 2024-04-03 14:35 | Inpatient (IN) | payer BC, SELFPAY ==
[2024-04-03] VITALS (14 sets, daily range): BP systolic 119–157; BP diastolic 56–96; PULSE 82–100; RESP 14–23; TEMP 36.2–37.8; O2SAT 97–100
[2024-04-03] MEDS: Ketorolac 15 MG/ML VIAL 10 MG IVP (15:14)
[2024-04-03] MEDS: Ondansetron 4 MG/2 ML VIAL 8 MG IVP (15:14)
[2024-04-03] MEDS: Normal Saline 1,000 ML 1000 ML IV ×2 (15:14→17:24)
[2024-04-03 15:35] LABS: Anion Gap 14.8 mmol/L (3-11); BUN 17 mg/dL (7-18); CO2 23.2 mmol/L (21.0-32.0); CREATININE 1.3 mg/dL (0.55-1.02); Chloride 102 mmol/L (98-107); Estimated GFR 54.65 (mL/min/1.73m2); Glucose 316 mg/dL (74-106); Potassium 4.2 mmol/L (3.5-5.1); Sodium 140 mmol/L (136-145)
[2024-04-03] MEDS: Insulin REGULAR-Human 100 UNITS/ML UNIT IV (16:15)
[2024-04-03 16:32] LABS: Bilirubin Small (Negative); Blood Large (Negative); Clarity Sl Cloudy (Clear); Glucose 500 mg/dL (Negative); Ketones >=160 mg/dL (Negative); Leukocyte Esterase Negative (Negative); Nitrite Negative (Negative); Specific Gravity >= 1.030 (1.005-1.025); Urobilinogen 0.2 mg/dL (Up to 0.2); pH 5.5 (5-8)
[2024-04-03 16:40] LABS: Bacteria Moderate HPF (Negative); C & S Indicated? No/Sq. Contamination; Casts Negative LPF (Negative); Crystals Negative HPF (Negative); Epithelial Cells Many HPF (Negative); Mucus Trace (Negative); Other Cells Few Yeast (Negative)
--- NOTE | 2024-04-03 16:42 | W.ED.GENAD ---
Discharge Plan Disposition Patient Disposition: Admit to [facility] Condition: Fair Discharge Details Chief Complaint: Nausea/Vomit/Diar Clinical Impression: DKA (diabetic ketoacidosis), Calculus of ureterovesical junction (UVJ), TU (acute kidney injury), Vomiting, Acute dehydration Primary Care Provider: Te Fan ED Provider: Suzie Aguayo Home Meds and New Rx's Prescriptions: No Action etonogestrel-ethinyl estradiol [NuvaRing] 0.12-0.015 mg/24 hr ring 1 vag ring vaginal Q4W Rx Instructions: leave in place for 3 weeks of a 4-week cycle albuterol sulfate [ProAir HFA] 90 mcg/actuation HFA aerosol inhaler 2 puff inhalation Q6H PRN thyroid (pork) [[place] Thyroid] 60 mg tablet 60 mg PO DAILY ergocalciferol (vitamin D2) 1,250 mcg (50,000 unit) capsule 1,250 mcg PO .3x week insulin lispro [Humalog KwikPen Insulin] 100 unit/mL insulin pen 80 - 120 unit subcut TID insulin glargine U-300 conc [Toujeo Max U-300 SoloStar] 300 unit/mL (3 mL) insulin pen 30 unit subcut BID metformin 850 mg tablet 850 mg PO BID omeprazole 20 mg capsule,delayed release(DR/EC) 20 mg PO DAILY PRN famotidine 1 tab PO BID apple cider vinegar 1 tab PO DAILY losartan 50 mg tablet 50 mg PO DAILY Patient Comments: TAKE ONE TABLET BY MOUTH EVERY DAY pantoprazole 40 mg tablet,delayed release (DR/EC) 80 mg PO DAILY Patient Comments: TAKE ONE TABLET BY MOUTH EVERY DAY 30 MIN BEFORE SUPPER rosuvastatin 10 mg tablet 10 mg PO DAILY Patient Comments: TAKE ONE TABLET BY MOUTH AT BEDTIME tamsulosin 0.4 mg capsule 0.4 mg PO DAILY Qty: 14 0RF oxycodone 5 mg tablet 5 mg PO Q8H PRN (Reason: pain) Qty: 6 0RF HPI General Date/Time Provider Initiated Documentation: 04/03/24 14:37. Limitations to Documentation: physical limitation. Information obtained by: patient. HPI Narrative: 38-year-old female with past medical history of diabetes, on insulin pump, recent diagnosis of UVJ calculus presents to the emergency department with severe vomiting. Patient was evaluated last night in the emergency department and found to have a 3 mm stone. She reports that she was sent home with Flomax and pain medication. She states that her pain was well-controlled last night, but shortly after getting home, she started having recurrence of severe abdominal pain as well as vomiting. She reports persistent vomiting throughout the day. She has not been able to tolerate anything by mouth. She had no nausea medications to take at home. She reports that the pain is coming back. She reports that it is right-sided flank pain in her right back and radiating around to the front. She denies any dysuria. She reports that her blood sugars have been fairly elevated during this time. Related Data Home Medications Medication Instructions Recorded Confirmed albuterol sulfate 90 mcg/actuation 2 puff inhalation Q6H PRN 06/26/21 04/03/24 aerosol inhaler (ProAir HFA) ergocalciferol (vitamin D2) 1,250 1,250 mcg PO .3x week 06/26/21 04/03/24 mcg (50,000 unit) capsule etonogestrel 0.12 mg-ethinyl 1 vag ring vaginal Q4W 06/26/21 04/03/24 estradiol 0.015 mg/24 hr vaginal ring (NuvaRing) insulin glargine U-300 conc 300 30 unit subcut BID 06/26/21 04/03/24 unit/mL (3 mL) subcutaneous pen (Toujeo Max U-300 SoloStar) insulin lispro 100 unit/mL 80 - 120 unit subcut TID 06/26/21 04/03/24 subcutaneous pen (Humalog KwikPen (U-100) Insulin) metformin 850 mg tablet 850 mg PO BID 06/26/21 04/03/24 thyroid (pork) 60 mg tablet 60 mg PO DAILY 06/26/21 04/03/24 ([place] Thyroid) omeprazole 20 mg capsule,delayed 20 mg PO DAILY PRN 06/27/21 04/03/24 release apple cider vinegar 1 tab PO DAILY 12/13/23 04/03/24 famotidine 1 tab PO BID 12/13/23 04/03/24 losartan 50 mg tablet 50 mg PO DAILY 04/03/24 04/03/24 oxycodone 5 mg tablet 5 mg PO Q8H PRN pain #6 tabs 04/03/24 04/03/24 pantoprazole 40 mg tablet,delayed 80 mg PO DAILY 04/03/24 04/03/24 release rosuvastatin 10 mg tablet 10 mg PO DAILY 04/03/24 04/03/24 tamsulosin 0.4 mg capsule 0.4 mg PO DAILY #14 caps 04/03/24 04/03/24 Previous Rx's Medication Instructions Recorded oxycodone 5 mg tablet 5 mg PO Q8H PRN pain #6 tabs 04/03/24 tamsulosin 0.4 mg capsule 0.4 mg PO DAILY #14 caps 04/03/24 Allergies Allergy/AdvReac Type Severity Reaction Status Date / Time No Known Allergies Allergy Verified 04/03/24 01:19 General Stated Complaint: Nausea/Vomit/Diar ERICA: 3 Exam Narrative Exam Narrative: Review of Systems: All systems reviewed & are unremarkable except as noted in HPI and below Well-developed, +actively vomiting NCAT PERRL, normal conjunctiva Dry mucous membranes RRR Unlabored respiratory effort Nondistended abdomen, soft nontender, no CVA tenderness Extremities w/o deformity, no cyanosis, no edema Insulin pump and Dexcom in place No rashes or lesions. no focal neurologic deficits Appropriate mood and affect Course Vital Signs Vital signs: Vital Signs Temperature 36.2 C L 04/03/24 14:37 Pulse 92 H 04/03/24 14:37 Respiratory Rate 18 04/03/24 14:37 Blood Pressure 153/96 H 04/03/24 14:37 Pulse Oximetry 100 04/03/24 14:37 Temperature 36.2 C L 04/03/24 14:37 Temperature Source Temporal Artery Scan 04/03/24 14:37 Pulse 92 H 04/03/24 14:37 Respiratory Rate 18 04/03/24 14:37 Blood Pressure 153/96 H 04/03/24 14:37 Blood Pressure Position Sitting 04/03/24 14:37 Pulse Oximetry 100 04/03/24 14:37 Oxygen Delivery Method Room Air 04/03/24 14:37 Oxygen Flow Rate 0 04/03/24 14:37 Lab/Test Results Lab/Test Results: Laboratory Tests Range/Units 04/03/24 04/03/24 15:12 16:25 Sodium (136-145) mmol/L 140 Potassium (3.5-5.1) mmol/L 4.2 Chloride (98-107) mmol/L 102 Carbon Dioxide (21.0-32.0) mmol/L 23.2 Anion Gap (3-11) mmol/L 14.8 H BUN (7-18) mg/dL 17 Creatinine (0.55-1.02) mg/dL 1.3 H Est GFR (CKD-EPI 2020) (mL/min/1.73m2) 54.65 Glucose (74-106) mg/dL 316 H Calcium (8.5-10.1) mg/dL 9.0 Urine Color (Yellow) Yellow Urine Clarity (Clear) Sl Cloudy Urine pH (5-8) 5.5 Ur Specific [place] (1.005-1.025) >= 1.030 H Urine Protein (Neg-Trace) mg/dL 30 H Urine Ketones (Negative) mg/dL >=160 H Urine Blood (Negative) Large H Urine Nitrite (Negative) Negative Urine Bilirubin (Negative) Small H Urine Urobilinogen (Up to 0.2) mg/dL 0.2 Ur Leukocyte Esterase (Negative) Negative Urine RBC (0-2) HPF 10-20 H Urine WBC (0-5) HPF 5-10 Ur Epithelial Cells (Negative) HPF Many Urine Crystals (Negative) HPF Negative Urine Bacteria (Negative) HPF Moderate Urine Casts (Negative) LPF Negative Urine Mucus (Negative) Trace Urine Other (Negative) Few Yeast Ur Culture Indicated? No/Sq. Contamination Urine Glucose (Negative) mg/dL 500 H Medical Decision Making Emergent evaluation of right flank pain and vomiting. Patient was evaluated last night in the emergency department. I have reviewed this record and documentation noted that she was diagnosed with a right-sided UVJ stone. Given its size, had a high likelihood of passing without complication. However she is started having vomiting. Initial differential includes dehydration, electrolyte derangement, DKA. I reviewed the medical record last night and noted the lab work, kidney function and urinalysis as well as a CT scan. Will repeat some blood work to evaluate the electrolytes and start IV fluids, antiemetics and reassess. 1615 Lab work reviewed. Elevated anion gap noted. Increased creatinine from yesterday is concerning. Patient is also hyperglycemic. This could be secondary to some dehydration and volume depletion, also concern for possible DKA as cause of her vomiting. Will give IV insulin, continue fluid resuscitation and recheck the BMP. Her nausea and vomiting have stopped with the dose of Zofran. 1900 after IV fluids, repeat BMP is concerningly worse. patient reports that she also gave herself 4.5 units insulin through her pump. she is having persistent nausea. Given her metabolic derangement, I am concerned that the patient needs an insulin drip. Discussed wtih Dr Triplett, who also evaluated the patient in the ED and concurs. Will admit to ICU for further management, Medical Records Medical records reviewed: Yes I reviewed the patient's medical records. Lab Data Lab results reviewed: Yes I reviewed the patient's lab results. Quality:[facility] Health Related Social Needs: No Data to Display Critical Care Time Critical Care Time Critical Care Time: Yes Total Critical Care Time: 38 Attestation: CRITICAL CARE Upon my evaluation, this patient had a high probability of imminent or life-threatening deterioration due to dehydration, vomiting, DKA which required my direct attention, intervention, and personal management. I have personally provided 38 minutes of critical care time exclusive of time spent on separately billable procedures. Time includes review of laboratory data, radiology results, discussion with consultants, and monitoring for potential decompensation. Interventions were performed as documented above PFSH All Active Problems (Updated 04/03/24 @ 19:23 by Suzie Aguayo MD) Acute dehydration (Acute) Vomiting (Acute) TU (acute kidney injury) (Acute) DKA (diabetic ketoacidosis) (Acute) Calculus of ureterovesical junction (UVJ) (Acute) Abnormal auditory perception of both ears (Acute) Vitamin D deficiency (Acute) Fatigue (Acute) Medical History Hypertension Hyperlipidemia DM type 1 (diabetes mellitus, type 1) Asthma Hypothyroidism GERD (gastroesophageal reflux disease) Family History Mother Heart disease Diabetes Social History Smoking/Tobacco Use Status: Never Smoking risk assessment performed?: Yes Alcohol Intake: never Drug use: Never Substance use type: does not use
[2024-04-03] MEDS: ACETAMINOPHEN 1,000 MG/100 ML BTL 400 MG IVPB (17:24)
[2024-04-03 17:45] LABS: BE (Venous) -5 mmol/L (-2-3); HCO3 (Venous) 20 mmol/L (23-28); O2 Sat (Venous) 54 %; TCO2 (Venous) 18 mmol/L (24-29); pCO2 (Venous) 35 mmHg (41-51); pH (Venous) 7.37 (7.31-7.41); pO2 (Venous) 29 mmHg
[2024-04-03 17:57] LABS: Anion Gap 16.5 mmol/L (3-11); BUN 18 mg/dL (7-18); CO2 20.5 mmol/L (21.0-32.0); CREATININE 1.4 mg/dL (0.55-1.02); Calcium 8.6 mg/dL (8.5-10.1); Chloride 104 mmol/L (98-107); Glucose 245 mg/dL (74-106); Sodium 141 mmol/L (136-145)
--- NOTE | 2024-04-03 18:45 | W.PM.HP.N ---
Date of service: 04/03/24 Time of Service: 18:46 Assessment and Plan Assessment and plan (1) Calculus of ureterovesical junction (UVJ): Status: Acute Assessment and plan: Kidney stone, with modest DKA likely produced by marked reduction in usual insulin dose. The pH is virtually normal but the negatively trending HCO3 and AG suggest a more aggressive approach may be warranted. 1. Stone: likely to pass at 4 mm, will continue IVF, Flomax and prn analgesics and antiemetics 2. DKA: will place on usual Thi protocol and trend HCO3 and AG. No need for K replacement at this point. History of Present Illness History of Present Illness Chief Complaint: flank pain, nausea Narrative: 38 female with type 1 DM, usual daily dose insulin approx 100 units. Seen early this morning with right flank pain radiating to RLQ, evaluation demonstrated 4 mm stone at UVJ with mild hydro. Home on Flomax and prn Oxycodone. Returns today with continuing and recurrent pain (no change in character) and hads had multiple episodes of vomiting. Due to latter she reduced her insulin dose to 0.5 unit/hr (has pump), a roughly 90% dose reduction. Here in ER w/u of note for glucose 316; HCO3 23, AG 13 and + ketonuria; ph 7.37. After 2 L IVF and 5 unit IV insulin repeat labs of glucose 245, HCO3 20, AG 16. BUN/Cr 18/1.4, K 4.0. Due to worsening gap and decreasing HCO3 I was asked to evaluate for admission. Patient states the pain is coming back at this time but the nausea has not recurred since dose of Zofran. Review of Systems Narrative: per HPI PFSH All Active Problems Calculus of ureterovesical junction (UVJ) (Acute) Abnormal auditory perception of both ears (Acute) Vitamin D deficiency (Acute) Fatigue (Acute) Medical History Hypertension Hyperlipidemia DM type 1 (diabetes mellitus, type 1) Asthma Hypothyroidism GERD (gastroesophageal reflux disease) Family History Mother Heart disease Diabetes Social History Smoking/Tobacco Use Status: Never Smoking risk assessment performed?: Yes Alcohol Intake: never Drug use: Never Substance use type: does not use Meds Allergies and Home Medications Allergies Allergy/AdvReac Type Severity Reaction Status Date / Time No Known Allergies Allergy Verified 04/03/24 01:19 Home Medications Medication Instructions Recorded Confirmed Type albuterol sulfate 90 mcg/actuation 2 puff inhalation Q6H PRN 06/26/21 04/03/24 History aerosol inhaler (ProAir HFA) ergocalciferol (vitamin D2) 1,250 1,250 mcg PO .3x week 06/26/21 04/03/24 History mcg (50,000 unit) capsule etonogestrel 0.12 mg-ethinyl 1 vag ring vaginal Q4W 06/26/21 04/03/24 History estradiol 0.015 mg/24 hr vaginal ring (NuvaRing) insulin glargine U-300 conc 300 30 unit subcut BID 06/26/21 04/03/24 History unit/mL (3 mL) subcutaneous pen (Toujeo Max U-300 SoloStar) insulin lispro 100 unit/mL 80 - 120 unit subcut TID 06/26/21 04/03/24 History subcutaneous pen (Humalog KwikPen (U-100) Insulin) metformin 850 mg tablet 850 mg PO BID 06/26/21 04/03/24 History thyroid (pork) 60 mg tablet 60 mg PO DAILY 06/26/21 04/03/24 History ([place] Thyroid) omeprazole 20 mg capsule,delayed 20 mg PO DAILY PRN 06/27/21 04/03/24 History release apple cider vinegar 1 tab PO DAILY 12/13/23 04/03/24 History famotidine 1 tab PO BID 12/13/23 04/03/24 History losartan 50 mg tablet 50 mg PO DAILY 04/03/24 04/03/24 History oxycodone 5 mg tablet 5 mg PO Q8H PRN pain #6 tabs 04/03/24 04/03/24 Rx pantoprazole 40 mg tablet,delayed 80 mg PO DAILY 04/03/24 04/03/24 History release rosuvastatin 10 mg tablet 10 mg PO DAILY 04/03/24 04/03/24 History tamsulosin 0.4 mg capsule 0.4 mg PO DAILY #14 caps 04/03/24 04/03/24 Rx Exam Narrative Exam Narrative: 153/96, 96, 36.2, 18, 100%. HEENT atraumatic; neck supple; lungs clear; heart RRR; abdomen soft and NTl; back + right CVAT; extremities w/o edema; neuro Ox3, lucid, moves all 4s Results Labs 04/03/24 17:35 Labs: Laboratory Results - last 24 hr 04/03/24 04/03/24 04/03/24 15:12 16:25 17:35 VBG pH 7.37 VBG pCO2 35 L VBG pO2 29 VBG HCO3 20 L VBG Total CO2 18 L VBG O2 Saturation 54 VBG Base Excess -5 L Sodium 140 141 Potassium 4.2 4.0 Chloride 102 104 Carbon Dioxide 23.2 20.5 L Anion Gap 14.8 H 16.5 H BUN 17 18 Creatinine 1.3 H 1.4 H Est GFR (CKD-EPI 2020) 54.65 50.00 Glucose 316 H 245 H Calcium 9.0 8.6 Urine Color Yellow Urine Clarity Sl Cloudy Urine pH 5.5 Ur Specific [place] >= 1.030 H Urine Protein 30 H Urine Ketones >=160 H Urine Blood Large H Urine Nitrite Negative Urine Bilirubin Small H Urine Urobilinogen 0.2 Ur Leukocyte Esterase Negative Urine RBC 10-20 H Urine WBC 5-10 Ur Epithelial Cells Many Urine Crystals Negative Urine Bacteria Moderate Urine Casts Negative Urine Mucus Trace Urine Other Few Yeast Ur Culture Indicated? No/Sq. Contamination Urine Glucose 500 H Last Vital Signs Temp 36.2 C L 04/03/24 17:46 Pulse 92 H 04/03/24 17:46 Resp 18 04/03/24 17:46 BP 153/96 H 04/03/24 17:46 Pulse Ox 100 04/03/24 17:46 Time Spent Time spent with Patient: 55-74 minutes Time was spent: preparing to see the patient(eg.review tests), obtaining and/or reviewing separately otained hiistory, ordering medications,tests, procedures, referring, communicating with other health pediatric acute care unit nurse and indepentently interpreting results
[2024-04-03] MEDS: Metoclopramide 10 MG/2 ML VIAL IVP (19:10)
[2024-04-03] MEDS: MORPHine 4 MG/ML SYR IVP ×2 (19:34→21:29)
--- NOTE | 2024-04-03 19:47 | W.PC.ACHO ---
Registration Status: REG ER Primary Language: Preferred Language: ED Information & Data Chief Complaint Nausea/Vomit/Diar 04/03/24 17:48 Chief Complaint Nausea/Vomit/Diar 04/03/24 16:47 Triage Note Patient here last night for 04/03/24 14:37 a kidney stone. Today complaining of vomiting and pain. Medical / Surgical History (Last Reviewed 04/03/24 @ 18:55 by Hu Triplett MD) Hypertension Hyperlipidemia DM type 1 (diabetes mellitus, type 1) Asthma Hypothyroidism GERD (gastroesophageal reflux disease) Most Recent Vital Signs Temperature 36.2 C L 04/03/24 17:46 Temperature Source Temporal Artery Scan 04/03/24 17:46 Pulse 92 H 04/03/24 19:16 Pulse 100 H 04/03/24 19:20 Respiratory Rate 23 04/03/24 19:20 Respiratory Effort Normal 04/03/24 17:48 Blood Pressure 157/82 H 04/03/24 19:16 Blood Pressure Mean 98 04/03/24 19:16 Blood Pressure Position Sitting 04/03/24 17:46 Pulse Oximetry 99 04/03/24 19:20 Oxygen Delivery Method Room Air 04/03/24 17:46 Oxygen Flow Rate 0 04/03/24 17:46 Allergies No Known Allergies Allergy (Verified 04/03/24 01:19) Precautions Isolation Standard precaution 04/03/24 17:48 Active Medications Generic Name Dose Route Start Last Admin Trade Name Freq PRN Reason Stop Dose Admin Morphine Sulfate 4 mg 04/03/24 19:01 04/03/24 19:34 Morphine 4 Mg/Ml Syr IVP 4 mg Q2H PRN PRN Administration IV IV Catheter Type [Left Forearm Peripheral IV ] IV Catheter Gauge [Left 20 Forearm] Diet Orders Category Date Time Status Nothing Per Oral [DIET] Nutrition 04/04/24 Breakfast Ordered Diagnostics 04/03/24 04/03/24 04/03/24 Range/Units 23:15 19:35 17:35 VBG pH 7.37 (7.31-7.41) VBG pCO2 35 L (41-51) mmHg VBG pO2 29 mmHg VBG HCO3 20 L (23-28) mmol/L VBG Total CO2 18 L (24-29) mmol/L VBG O2 Saturation 54 % VBG Base Excess -5 L (-2-3) mmol/L Sodium Pending Pending 141 (136-145) mmol/L Potassium Pending Pending 4.0 (3.5-5.1) mmol/L Chloride Pending Pending 104 (98-107) mmol/L Carbon Dioxide Pending Pending 20.5 L (21.0-32.0) mmol/L Anion Gap Pending Pending 16.5 H (3-11) mmol/L BUN Pending Pending 18 (7-18) mg/dL Creatinine Pending Pending 1.4 H (0.55-1.02) mg/dL Est GFR (CKD-EPI 2020) Pending Pending 50.00 (mL/min/1.73m2) Glucose Pending Pending 245 H (74-106) mg/dL Calcium Pending Pending 8.6 (8.5-10.1) mg/dL Urine Color (Yellow) Urine Clarity (Clear) Urine pH (5-8) Ur Specific [place] (1.005-1.025) Urine Protein (Neg-Trace) mg/dL Urine Ketones (Negative) mg/dL Urine Blood (Negative) Urine Nitrite (Negative) Urine Bilirubin (Negative) Urine Urobilinogen (Up to 0.2) mg/dL Ur Leukocyte Esterase (Negative) Urine RBC (0-2) HPF Urine WBC (0-5) HPF Ur Epithelial Cells (Negative) HPF Urine Crystals (Negative) HPF Urine Bacteria (Negative) HPF Urine Casts (Negative) LPF Urine Mucus (Negative) Urine Other (Negative) Ur Culture Indicated? Urine Glucose (Negative) mg/dL 04/03/24 04/03/24 Range/Units 16:25 15:12 VBG pH (7.31-7.41) VBG pCO2 (41-51) mmHg VBG pO2 mmHg VBG HCO3 (23-28) mmol/L VBG Total CO2 (24-29) mmol/L VBG O2 Saturation % VBG Base Excess (-2-3) mmol/L Sodium 140 (136-145) mmol/L Potassium 4.2 (3.5-5.1) mmol/L Chloride 102 (98-107) mmol/L Carbon Dioxide 23.2 (21.0-32.0) mmol/L Anion Gap 14.8 H (3-11) mmol/L BUN 17 (7-18) mg/dL Creatinine 1.3 H (0.55-1.02) mg/dL Est GFR (CKD-EPI 2020) 54.65 (mL/min/1.73m2) Glucose 316 H (74-106) mg/dL Calcium 9.0 (8.5-10.1) mg/dL Urine Color Yellow (Yellow) Urine Clarity Sl Cloudy (Clear) Urine pH 5.5 (5-8) Ur Specific [place] >= 1.030 H (1.005-1.025) Urine Protein 30 H (Neg-Trace) mg/dL Urine Ketones >=160 H (Negative) mg/dL Urine Blood Large H (Negative) Urine Nitrite Negative (Negative) Urine Bilirubin Small H (Negative) Urine Urobilinogen 0.2 (Up to 0.2) mg/dL Ur Leukocyte Esterase Negative (Negative) Urine RBC 10-20 H (0-2) HPF Urine WBC 5-10 (0-5) HPF Ur Epithelial Cells Many (Negative) HPF Urine Crystals Negative (Negative) HPF Urine Bacteria Moderate (Negative) HPF Urine Casts Negative (Negative) LPF Urine Mucus Trace (Negative) Urine Other Few Yeast (Negative) Ur Culture Indicated? No/Sq. Contamination Urine Glucose 500 H (Negative) mg/dL Intake and Output - 24 Hour Total 04/03/24 14:35 thru 04/03/24 19:15 Intake Total 2119 Balance 2119 Weight 91.626 kg Intake: IV 0 Falls Risk Assessment History of Falls No History 04/03/24 17:46 Contributing Factors No Factors 04/03/24 17:46 Ambulatory Aids Independent 04/03/24 17:46 Tubes/Lines None 04/03/24 17:46 Gait Evaluation No gait disturbance 04/03/24 17:46 Cognition No cognitive impairment 04/03/24 17:46 Fall Total Score 0 04/03/24 17:46 Level of Risk Standard/Low Risk 04/03/24 17:46 Problems (Last Reviewed 04/03/24 @ 18:55 by Hu Triplett MD) Acute dehydration (Acute) Vomiting (Acute) TU (acute kidney injury) (Acute) DKA (diabetic ketoacidosis) (Acute) Calculus of ureterovesical junction (UVJ) (Acute) v v v v v v v v v Sending and/or Receiving Nurses: Please use comment section below to note any information pertinent to the patient hand-off not included above. Information / Comments: Report received from: Eleni RICE
[2024-04-03 19:49] LABS: Anion Gap 18.9 mmol/L (3-11); BUN 17 mg/dL (7-18); CO2 15.1 mmol/L (21.0-32.0); CREATININE 1.3 mg/dL (0.55-1.02); Calcium 7.9 mg/dL (8.5-10.1); Chloride 108 mmol/L (98-107); Estimated GFR 54.65 (mL/min/1.73m2); Glucose 220 mg/dL (74-106); Potassium 4.9 mmol/L (3.5-5.1); Sodium 142 mmol/L (136-145)
[2024-04-03] MEDS: Normal Saline Flush 10 ML SYR IVP ×2 (20:48)
[2024-04-03] MEDS: Pantoprazole 40 MG VIAL IVP (20:49)
[2024-04-03] MEDS: DEXTROSE 5%-0.45% SALINE 1,000 ML 150 ML IV (20:50)
[2024-04-03] MEDS: INSULIN REGULAR IN 0.9 % NACL 100 UNIT/100 ML BAG IV (20:52)
[2024-04-03 23:39] LABS: Anion Gap 11.8 mmol/L (3-11); BUN 16 mg/dL (7-18); CO2 21.2 mmol/L (21.0-32.0); CREATININE 1.5 mg/dL (0.55-1.02); Calcium 7.5 mg/dL (8.5-10.1); Chloride 108 mmol/L (98-107); Estimated GFR 46.03 (mL/min/1.73m2); Glucose 211 mg/dL (74-106); Sodium 141 mmol/L (136-145)
[2024-04-03 23:44] LABS: Potassium 3.7 mmol/L (3.5-5.1)
[2024-04-04] VITALS (26 sets, daily range): BP systolic 110–151; BP diastolic 61–98; PULSE 71–96; RESP 16–30; TEMP 35.9–37.6; O2SAT 86–98
[2024-04-04] MEDS: POTASSIUM CHLORIDE/D5-0.45NACL 1,000 ML 150 MEQ IV ×4 (00:17→21:25)
[2024-04-04] MEDS: MORPHine 4 MG/ML SYR IVP ×6 (00:18→10:26)
[2024-04-04] MEDS: Ondansetron 4 MG/2 ML VIAL IVP ×5 (00:27→20:10)
[2024-04-04 06:48] LABS: Anion Gap 11.6 mmol/L (3-11); BUN 14 mg/dL (7-18); CO2 22.4 mmol/L (21.0-32.0); CREATININE 1.5 mg/dL (0.55-1.02); Calcium 7.7 mg/dL (8.5-10.1); Chloride 107 mmol/L (98-107); Estimated GFR 46.03 (mL/min/1.73m2); Glucose 96 mg/dL (74-106); Potassium 3.7 mmol/L (3.5-5.1); Sodium 141 mmol/L (136-145)
[2024-04-04] MEDS: Pantoprazole 40 MG VIAL IVP ×2 (08:38→20:09)
[2024-04-04] MEDS: Normal Saline Flush 10 ML SYR IVP ×5 (08:38→20:37)
[2024-04-04] MEDS: Thyroid 60 MG TAB PO (08:59)
[2024-04-04] MEDS: Tamsulosin 0.4 MG CAPCR PO (08:59)
--- NOTE | 2024-04-04 10:41 | DI.RAD_ITS ---
Exam(s) XR PORTABLE CHEST AP EXAM: XR PORTABLE CHEST AP CLINICAL HISTORY: newly hypoxic. TECHNIQUE: 2D digital imaging was performed. COMPARISON: CT CT RENAL COLIC WO from 04/03/2024 FINDINGS: Single AP portable view. Heart size is upper normal. The mediastinum is not widened. Increased markings in both lungs slightly exaggerated by respiratory motion. There is suggestion of some confluent infiltrate in the left lower lobe. No pleural effusions. IMPRESSION: As above. If clinically indicated further study with CT scan can be performed. DATA REPOSITORY: RADIATION DOSE DELIVERED:
--- NOTE | 2024-04-04 11:21 | W.PM.PROGNOT ---
Date of Service Date of service: 04/04/24 Time of Service: 11:21 Assessment and Plan Assessment and plan (1) DKA (diabetic ketoacidosis): Status: Acute Assessment and plan: -initially presented with elevated blood sugars and DKA with AG of 13 when patient attmpted to decreased insulin pump due to N/V from pain related to kidney stone -AG improved this AM, but patient remains nauseous and not able to tolerate PO intake at this time -will continue to aggressively treat pain and nausea, and patient will remain on DKA protocol until she is able to tolerate PO intake -continue to monitor Q4h BMP (2) Calculus of ureterovesical junction (UVJ): Status: Acute Assessment and plan: -patient dx with UVJ stone on CT on admission -continue to treat with PRN IV dilaudid, as well as IV zofran and ativan for nausea (3) TU (acute kidney injury): Status: Acute Assessment and plan: -secondary to stone as noted above (4) Acute respiratory failure with hypoxia: Status: Acute Assessment and plan: -patient now requiring supplemental O2 as O2 sat decreased to high 80's on room air -CXR done and showed vascular congestion -s/p 20mg IV lasix -continue to monitor O2 requirements and wean O2 as tolerated (5) Pulmonary edema: Status: Acute Assessment and plan: -as noted above Subjective Subjective Interval history since last seen: Patient states that she is feeling a little bit better today, but she is not interested in eating due to intermittent nausea. She understands that we will continue to keep her on the DKA protocol until she is able to tolerate p.o. intake, as well as manage her pain due to her kidney stone. Exam Narrative Exam Narrative: Well-appearing female lying in bed and mild distress due to flank pain, ANO x 4, now on 2 L nasal cannula, heart regular rate rhythm, lungs diminished in bilateral bases with faint coarse breath sounds bilaterally, abdomen obese, soft, nontender, nondistended Objective Last Vital Signs Temp 98.4 F 04/04/24 07:50 Pulse 75 04/04/24 09:05 Resp 26 H 04/04/24 09:05 BP 121/74 04/04/24 09:05 Pulse Ox 86 L 04/04/24 09:10 Laboratory Results - last 24 hr 04/03/24 04/03/24 04/03/24 15:12 16:25 17:35 VBG pH 7.37 VBG pCO2 35 L VBG pO2 29 VBG HCO3 20 L VBG Total CO2 18 L VBG O2 Saturation 54 VBG Base Excess -5 L Sodium 140 141 Potassium 4.2 4.0 Chloride 102 104 Carbon Dioxide 23.2 20.5 L Anion Gap 14.8 H 16.5 H BUN 17 18 Creatinine 1.3 H 1.4 H Est GFR (CKD-EPI 2020) 54.65 50.00 Glucose 316 H 245 H Calcium 9.0 8.6 Urine Color Yellow Urine Clarity Sl Cloudy Urine pH 5.5 Ur Specific [place] >= 1.030 H Urine Protein 30 H Urine Ketones >=160 H Urine Blood Large H Urine Nitrite Negative Urine Bilirubin Small H Urine Urobilinogen 0.2 Ur Leukocyte Esterase Negative Urine RBC 10-20 H Urine WBC 5-10 Ur Epithelial Cells Many Urine Crystals Negative Urine Bacteria Moderate Urine Casts Negative Urine Mucus Trace Urine Other Few Yeast Ur Culture Indicated? No/Sq. Contamination Urine Glucose 500 H 04/03/24 04/03/24 04/04/24 19:35 23:19 05:55 VBG pH VBG pCO2 VBG pO2 VBG HCO3 VBG Total CO2 VBG O2 Saturation VBG Base Excess Sodium 142 141 141 Potassium 4.9 3.7 D 3.7 Chloride 108 H 108 H 107 Carbon Dioxide 15.1 L 21.2 22.4 Anion Gap 18.9 H 11.8 H 11.6 H BUN 17 16 14 Creatinine 1.3 H 1.5 H 1.5 H Est GFR (CKD-EPI 2020) 54.65 46.03 46.03 Glucose 220 H 211 H 96 Calcium 7.9 L 7.5 L 7.7 L Urine Color Urine Clarity Urine pH Ur Specific [place] Urine Protein Urine Ketones Urine Blood Urine Nitrite Urine Bilirubin Urine Urobilinogen Ur Leukocyte Esterase Urine RBC Urine WBC Ur Epithelial Cells Urine Crystals Urine Bacteria Urine Casts Urine Mucus Urine Other Ur Culture Indicated? Urine Glucose Time Spent with Patient Time Spent with Patient: >50 minutes Time was spent: preparing to see the patient(eg.review tests), obtaining and/or reviewing separately otained hiistory, ordering medications,tests, procedures, referring, communicating with other health managed care manager, indepentently interpreting results, counseling the patient and care coordination
[2024-04-04] MEDS: oxyCODONE 5 MG TAB PO (11:23)
[2024-04-04] MEDS: Furosemide 20 MG/2 ML VIAL IVP (11:23)
[2024-04-04] MEDS: LORazepam 2 MG/ML VIAL 1 MG IVP ×3 (11:49→22:45)
[2024-04-04] MEDS: HYDROmorphone 2 MG/ML SYR 1 MG IVP ×4 (11:50→21:08)
--- NOTE | 2024-04-04 14:28 | PDOC.CMIN ---
Date of service: 04/04/24 Time of Service: 14:28 Care Management Initial Assmt Initial Assessment Reason for Hospitalization: Kidney Stone, DKA Functional Status/Living Situation Patient Presentation: Miladys was lying in bed when CM met with her; she appeared very tired and was unable to keep her eyes open during the conversation. She stated that she was not feeling well and asked that CM visit at a different time. CM spoke to her RN, who agreed that she is not able to have a coherent conversation at this time. Per MD, she will have a urology consult placed, which will likely happen tomorrow. Town of Residence: [facility] Instrumental Activities of Daily Living (ADLs): Independent Medications Medication Management: No Issues/Barriers identified Advance Directives Advance Directives: Do you have an Advance Directive: N 12/13/23 14:12 AD On File at [facility]: N 12/13/23 14:12 Date Asked 04/03/24 04/03/24 01:28 AD Date Reviewed COLST On File at [facility] COLST Date Scanned Code Status Resuscitation Status Full Code Portal Pt does not currently have a portal and education provided: No Portal Education: Other (pt not able to engage in conversation at this time) Insurance Coverage/Financial Issues Insurance: BC/BS ACO Member: No Care Team Visit Care Team Role Provider Type Te Fan Primary Care Provider [employer] Suzie Aguayo MD Emergency Provider [facility] STAFF PHYSICIAN Hu Triplett MD Admit Provider [facility] STAFF PHYSICIAN Attending Provider Discharge Potential Discharge Needs: Consult Consult Services Needed: Other (Urology) Anticipated Barriers to Discharge: Medical Status Patient/Family Education Needs: Review discharge instructions, discuss Ask Me Three Transportation: Private vehicle Plan: Anticipate Miladys will return home once medically cleared. She will be driven home via private vehicle. She will follow up with her PCP and discharge plan of care. CM will continue to follow. PFSH All Active Problems (Updated 04/04/24 @ 11:24 by Leon Mcpherson MD) Pulmonary edema (Acute) Acute respiratory failure with hypoxia (Acute) Acute dehydration (Acute) Vomiting (Acute) TU (acute kidney injury) (Acute) DKA (diabetic ketoacidosis) (Acute) Calculus of ureterovesical junction (UVJ) (Acute) Abnormal auditory perception of both ears (Acute) Vitamin D deficiency (Acute) Fatigue (Acute) Medical History Hypertension Hyperlipidemia DM type 1 (diabetes mellitus, type 1) Asthma Hypothyroidism GERD (gastroesophageal reflux disease) Family History Mother Heart disease Diabetes Social History Smoking/Tobacco Use Status: Never Smoking risk assessment performed?: Yes Alcohol Intake: never Drug use: Never Substance use type: does not use Housing: house SDOH(Care Management) Screening Will the Patient Participate in the Screening?: Yes Do you worry about having a steady place to live?: no Problems where you live: no known problems In the past 12 months, have you had to go without electric, gas, oil or water in your home?: no Have you or anyone in your house had to go without enough food to eat?: no Has lack of transportation kept you from medical appointments or from doing things needed for daily living?: no Has anyone in your support network made you feel unsafe for any reason?: no
--- NOTE | 2024-04-04 14:42 | PHACLINREV_ITS ---
Pharmacy Admission Review Admission Clinical Review Admission Pharmacy Review: Pulmonary edema (Acute) Acute respiratory failure with hypoxia (Acute) Acute dehydration (Acute) Vomiting (Acute) TU (acute kidney injury) (Acute) DKA (diabetic ketoacidosis) (Acute) Calculus of ureterovesical junction (UVJ) (Acute) No Known Allergies Allergy (Verified 04/03/24 01:19) Resuscitation Status Full Code Height 5 ft 4 in Weight 94.1 kg Comments Comments/Follow Ups: Watch VS, BG, SCr, labs and for med changes (possible renal dose adjustments, IV to PO). Pharmacy Admission Review Renal Dosing Renal Dosing: BUN 14 mg/dL (7-18) 04/04/24 05:55 Creatinine 1.5 mg/dL (0.55-1.02) H 04/04/24 05:55 Medications needing adjustments: Intervened (Crcl ~57.6 mL/min current meds okay, famotidine renally adjusted ) Anticoagulation Anticoagulation: Creatinine 1.5 mg/dL (0.55-1.02) H 04/04/24 05:55 DVT Prophylaxis: Intervened (none ordered on admission, mentioned to provider) Medications: Enoxaparin Opiate Usage Evaluate Pain Scale/Pains Meds: Reviewed Scheduled Bowel Reg ordered if on Opiates?: No (will mention to provider) Relevant Labs Relevant Labs: Sodium 141 mmol/L (136-145) 04/04/24 05:55 Potassium 3.7 mmol/L (3.5-5.1) 04/04/24 05:55 Chloride 107 mmol/L (98-107) 04/04/24 05:55 Electrolytes, C-Reactive P, ESR: Reviewed DM Control DM Control: Glucose 96 mg/dL (74-106) 04/04/24 05:55 Finger Stick Blood Glucose 116 Finger Stick Blood Glucose 116 Finger Stick Blood Glucose 112 Finger Stick Blood Glucose 112 Finger Stick Blood Glucose 107 Finger Stick Blood Glucose 107 Finger Stick Blood Glucose 99 Finger Stick Blood Glucose 99 DM Control: Reviewed Insulin Dosing, Diabetic Medication: insulin infusion currently ordered Cardiac Review BP, HR, EF%: Reviewed QTc Review QTc: N/A IV to PO Switch IV Medications: Reviewed (watch for IV to PO once pt tolerating PO better) Home Meds Home Med List reviewed: Reviewed (therapeutic duplicate- omeprazole and pantoprazole ) Relevent Home Meds Not ordered & why?: ergocalciferol, etonogestrel/ethinyl estradiol (Q4 weeks), insulin glargine and lispro (has insulin infusion ordered), metformin, omeprazole (has pantoprazole ordered) Current Meds Current Medication Order Review: Intervened (adjusted pantoprazole per medical billing service time policy) Comments Comments/Follow Ups: Watch VS, BG, SCr, labs and for med changes (possible renal dose adjustments, IV to PO).
[2024-04-04 17:13] LABS: Anion Gap 10.8 mmol/L (3-11); BUN 11 mg/dL (7-18); CO2 20.2 mmol/L (21.0-32.0); CREATININE 1.4 mg/dL (0.55-1.02); Calcium 7.7 mg/dL (8.5-10.1); Chloride 106 mmol/L (98-107); Glucose 185 mg/dL (74-106); Potassium 4.1 mmol/L (3.5-5.1); Sodium 137 mmol/L (136-145)
[2024-04-04 18:43] LABS: Anion Gap 11.5 mmol/L (3-11); BUN 10 mg/dL (7-18); CO2 22.5 mmol/L (21.0-32.0); CREATININE 1.5 mg/dL (0.55-1.02); Calcium 7.5 mg/dL (8.5-10.1); Chloride 103 mmol/L (98-107); Estimated GFR 46.03 (mL/min/1.73m2); Glucose 174 mg/dL (74-106); Potassium 3.8 mmol/L (3.5-5.1); Sodium 137 mmol/L (136-145)
[2024-04-04 20:44] LABS: Bilirubin Negative (Negative); Blood Moderate (Negative); Clarity Clear (Clear); Glucose Negative (Negative); Ketones Negative (Negative); Leukocyte Esterase Trace (Negative); Nitrite Negative (Negative); Urobilinogen 0.2 mg/dL (Up to 0.2); pH 5.5 (5-8)
[2024-04-04 20:57] LABS: Bacteria Moderate HPF (Negative); C & S Indicated? C&S Done As Ordered; Casts Negative LPF (Negative); Crystals Negative HPF (Negative); Epithelial Cells Many HPF (Negative); Mucus Negative (Negative); Other Cells Rare Transitional (Negative); WBC 0-2 HPF (0-5)
[2024-04-04 22:29] LABS: Abs Immature Grans 0.05 10^3/uL (0.0-0.06); Absolute Eosinophil Count 0.01 10^3/uL (0.0-0.7); Absolute Monocyte Count 0.75 10^3/uL (0.1-0.8); Basophils % 0.1 %; Eosinophils % 0.1 %; HCT 34.3 % (36.0-46.0); HGB 11.2 g/dL (11.2-15.7); Immature Grans % 0.4 %; Lymphocytes % 9.4 %; MCH 30.4 pg (27.0-33.0); MCHC 32.7 % (32.0-36.0); MCV 93 fL (80-95); MPV 10.8 fL (8.0-11.0); Monocytes % 5.6 %; Neutrophils % 84.4 %; Platelet Count 244 10^3/uL (130-400); RBC 3.68 10^6/uL (3.93-5.22); RDW 12.4 % (11.7-14.6); RDW-SD 42.7 fL; WBC 13.34 10^3/uL (4.4-10.8)
[2024-04-04 22:33] LABS: Absolute Basophil Count 0.01 10^3/uL (0.0-0.2); Absolute Lymphocyte Count 1.25 10^3/uL (1.2-3.4); Absolute Neutrophil Count 11.26 10^3/uL (1.2-6.7)
[2024-04-04 22:35] LABS: Anion Gap 10.6 mmol/L (3-11); BUN 10 mg/dL (7-18); CO2 22.4 mmol/L (21.0-32.0); CREATININE 1.4 mg/dL (0.55-1.02); Calcium 7.7 mg/dL (8.5-10.1); Chloride 105 mmol/L (98-107); Glucose 125 mg/dL (74-106); Potassium 3.6 mmol/L (3.5-5.1); Sodium 138 mmol/L (136-145)
[2024-04-04 23:01] LABS: Procalcitonin < 0.1 ng/mL
[2024-04-05] VITALS (21 sets, daily range): BP systolic 117–151; BP diastolic 69–98; PULSE 92–108; RESP 15–27; TEMP 36.8–38.3; O2SAT 92–98
[2024-04-05] MEDS: HYDROmorphone 2 MG/ML SYR 1 MG IVP ×6 (00:15→22:30)
[2024-04-05] MEDS: INSULIN REGULAR IN 0.9 % NACL 100 UNIT/100 ML BAG IV (01:30)
[2024-04-05 02:10] LABS: Anion Gap 10.9 mmol/L (3-11); BUN 7 mg/dL (7-18); CO2 21.1 mmol/L (21.0-32.0); CREATININE 1.2 mg/dL (0.55-1.02); Calcium 7.3 mg/dL (8.5-10.1); Chloride 106 mmol/L (98-107); Estimated GFR 60.16 (mL/min/1.73m2); Glucose 94 mg/dL (74-106); Potassium 4.1 mmol/L (3.5-5.1); Sodium 138 mmol/L (136-145)
[2024-04-05] MEDS: Dextrose 50%-Water 25 GM/50 ML SYR (03:11)
[2024-04-05] MEDS: Ondansetron 4 MG/2 ML VIAL IVP ×2 (04:00→09:06)
[2024-04-05] MEDS: POTASSIUM CHLORIDE/D5-0.45NACL 1,000 ML 150 MEQ IV ×2 (05:35→12:00)
[2024-04-05] MEDS: LORazepam 2 MG/ML VIAL 1 MG IVP ×2 (05:51→11:27)
[2024-04-05] MEDS: Thyroid 60 MG TAB PO (06:10)
[2024-04-05 07:15] LABS: Anion Gap 9.6 mmol/L (3-11); BUN 7 mg/dL (7-18); CO2 22.4 mmol/L (21.0-32.0); CREATININE 1.2 mg/dL (0.55-1.02); Calcium 7.5 mg/dL (8.5-10.1); Chloride 105 mmol/L (98-107); Estimated GFR 60.16 (mL/min/1.73m2); Glucose 147 mg/dL (74-106); Potassium 3.4 mmol/L (3.5-5.1); Sodium 137 mmol/L (136-145)
[2024-04-05] MEDS: Normal Saline Flush 10 ML SYR IVP ×6 (07:57→23:36)
[2024-04-05] MEDS: Pantoprazole 40 MG VIAL IVP ×2 (07:57→19:38)
[2024-04-05] MEDS: Tamsulosin 0.4 MG CAPCR PO (07:57)
[2024-04-05] MEDS: Rosuvastatin 10 MG TAB PO (07:57)
--- NOTE | 2024-04-05 10:40 | DI.US_ITS ---
Exam(s) US RENAL EXAM: US RENAL CLINICAL HISTORY: hydro as compared to initial CT. TECHNIQUE: Mckinney scale, color and spectral Doppler were used. COMPARISON: CT CT RENAL COLIC WO from 04/03/2024 FINDINGS: Right kidney: 12.8 x 5.9 x 5.8cm Echogenicity: Normal Hydronephrosis: Mild, similar to previous CT. Persists postvoid. Cyst or mass: No Nephrolithiasis: No Left kidney: 11.1 x 4.7 x 4.6cm Echogenicity: Normal Hydronephrosis: No Cyst or mass: No Nephrolithiasis: No Bladder:Normal. Right UVJ stone noted on prior CT is not visible on today's ultrasound. Right urete ral jet not seen. Prevoid vol:946 cc Postvoid vol:75 cc IMPRESSION: Persistent mild right hydronephrosis. No right ureteral jet was visualized. DATA REPOSITORY:
--- NOTE | 2024-04-05 12:33 | W.PM.PROGNOT ---
Date of Service Date of service: 04/05/24 Time of Service: 12:33 Assessment and Plan Assessment and plan (1) DKA (diabetic ketoacidosis): Status: Acute Assessment and plan: -initially presented with elevated blood sugars and DKA with AG of 13 when patient attmpted to decreased insulin pump due to N/V from pain related to kidney stone -AG improved this AM, but patient remains nauseous and not able to tolerate PO intake at this time -will continue to aggressively treat pain and nausea, and patient will remain on DKA protocol until she is able to tolerate PO intake -continue to monitor Q4h BMP (2) Calculus of ureterovesical junction (UVJ): Status: Acute Assessment and plan: -patient dx with UVJ stone on CT on admission -continue to treat with PRN IV dilaudid, as well as IV zofran and ativan for nausea -discussed with Urology PATROL DRIVER; -increasing tamsulosin to 0.8mg -starting ketoralac 30mg IV Q6h, will discontinue if Q4hr BMP shows significant increase in Cr -if patient does not pass stone by AM 04/06, Dr. Nuñez will evaluate patient for likely ureteral stent placement (3) TU (acute kidney injury): Status: Acute Assessment and plan: -secondary to stone as noted above (4) Acute respiratory failure with hypoxia: Status: Acute Assessment and plan: -patient now requiring supplemental O2 as O2 sat decreased to high 80's on room air -CXR done and showed vascular congestion -s/p 20mg IV lasix -continue to monitor O2 requirements and wean O2 as tolerated (5) Pulmonary edema: Status: Acute Assessment and plan: -as noted above Subjective Subjective Interval history since last seen: Patient states that she feels about the same as she did yesterday. However, she is encouraged that we are making some medication adjustments, and if she does not pass the stone overnight she will be seen by Urology tomorrow morning and possibly have a ureteral stent placed. Exam Narrative Exam Narrative: Well-appearing female lying in bed and mild distress due to flank pain, ANO x 4, now on 2 L nasal cannula, heart regular rate rhythm, lungs diminished in bilateral bases with faint coarse breath sounds bilaterally, abdomen obese, soft, nontender, nondistended Objective Last Vital Signs Temp 99.1 F 04/05/24 09:00 Pulse 102 H 04/05/24 08:00 Resp 22 04/05/24 08:00 BP 151/98 H 04/05/24 08:00 Pulse Ox 93 04/05/24 08:00 Laboratory Results - last 24 hr 04/04/24 04/04/24 04/04/24 10:00 16:45 17:20 WBC RBC Hgb Hct MCV MCH MCHC RDW Plt Count MPV Immature Gran % Neutrophils % Lymphocytes % Monocytes % Eosinophils % Basophils % Nucleated RBC % Absolute Neutrophils Absolute Lymphocytes Absolute Monocytes Absolute Eosinophils Absolute Basophils Sodium Cancelled 137 Cancelled Potassium Cancelled 4.1 Cancelled Chloride Cancelled 106 Cancelled Carbon Dioxide Cancelled 20.2 L Cancelled Anion Gap Cancelled 10.8 Cancelled BUN Cancelled 11 Cancelled Creatinine Cancelled 1.4 H Cancelled Est GFR (CKD-EPI 2020) Cancelled 50.00 Cancelled Glucose Cancelled 185 H Cancelled Calcium Cancelled 7.7 L Cancelled Procalcitonin Urine Color Urine Clarity Urine pH Ur Specific [place] Urine Protein Urine Ketones Urine Blood Urine Nitrite Urine Bilirubin Urine Urobilinogen Ur Leukocyte Esterase Urine RBC Urine WBC Ur Epithelial Cells Urine Crystals Urine Bacteria Urine Casts Urine Mucus Urine Other Ur Culture Indicated? Urine Glucose Phenobarbital 04/04/24 04/04/24 04/04/24 18:00 18:15 20:15 WBC RBC Hgb Hct MCV MCH MCHC RDW Plt Count MPV Immature Gran % Neutrophils % Lymphocytes % Monocytes % Eosinophils % Basophils % Nucleated RBC % Absolute Neutrophils Absolute Lymphocytes Absolute Monocytes Absolute Eosinophils Absolute Basophils Sodium Cancelled 137 Potassium Cancelled 3.8 Chloride Cancelled 103 Carbon Dioxide Cancelled 22.5 Anion Gap Cancelled 11.5 H BUN Cancelled 10 Creatinine Cancelled 1.5 H Est GFR (CKD-EPI 2020) Cancelled 46.03 Glucose Cancelled 174 H Calcium Cancelled 7.5 L Procalcitonin Urine Color Yellow Urine Clarity Clear Urine pH 5.5 Ur Specific [place] 1.020 Urine Protein Negative Urine Ketones Negative Urine Blood Moderate H Urine Nitrite Negative Urine Bilirubin Negative Urine Urobilinogen 0.2 Ur Leukocyte Esterase Trace H Urine RBC 3-5 H Urine WBC 0-2 Ur Epithelial Cells Many Urine Crystals Negative Urine Bacteria Moderate Urine Casts Negative Urine Mucus Negative Urine Other Rare Transitional Ur Culture Indicated? C&S Done As Ordered Urine Glucose Negative Phenobarbital 04/04/24 04/05/24 04/05/24 22:00 01:45 05:45 WBC 13.34 H RBC 3.68 L Hgb 11.2 D Hct 34.3 L MCV 93 MCH 30.4 MCHC 32.7 RDW 12.4 Plt Count 244 MPV 10.8 Immature Gran % 0.4 Neutrophils % 84.4 Lymphocytes % 9.4 Monocytes % 5.6 Eosinophils % 0.1 Basophils % 0.1 Nucleated RBC % 0.0 Absolute Neutrophils 11.26 H Absolute Lymphocytes 1.25 Absolute Monocytes 0.75 Absolute Eosinophils 0.01 Absolute Basophils 0.01 Sodium 138 138 137 Potassium 3.6 4.1 3.4 L Chloride 105 106 105 Carbon Dioxide 22.4 21.1 22.4 Anion Gap 10.6 10.9 9.6 BUN 10 7 7 Creatinine 1.4 H 1.2 H 1.2 H Est GFR (CKD-EPI 2020) 50.00 60.16 60.16 Glucose 125 H 94 147 H Calcium 7.7 L 7.3 L 7.5 L Procalcitonin < 0.1 Urine Color Urine Clarity Urine pH Ur Specific [place] Urine Protein Urine Ketones Urine Blood Urine Nitrite Urine Bilirubin Urine Urobilinogen Ur Leukocyte Esterase Urine RBC Urine WBC Ur Epithelial Cells Urine Crystals Urine Bacteria Urine Casts Urine Mucus Urine Other Ur Culture Indicated? Urine Glucose Phenobarbital 04/05/24 10:57 WBC RBC Hgb Hct MCV MCH MCHC RDW Plt Count MPV Immature Gran % Neutrophils % Lymphocytes % Monocytes % Eosinophils % Basophils % Nucleated RBC % Absolute Neutrophils Absolute Lymphocytes Absolute Monocytes Absolute Eosinophils Absolute Basophils Sodium Potassium Chloride Carbon Dioxide Anion Gap BUN Creatinine Est GFR (CKD-EPI 2020) Glucose Calcium Procalcitonin Urine Color Urine Clarity Urine pH Ur Specific [place] Urine Protein Urine Ketones Urine Blood Urine Nitrite Urine Bilirubin Urine Urobilinogen Ur Leukocyte Esterase Urine RBC Urine WBC Ur Epithelial Cells Urine Crystals Urine Bacteria Urine Casts Urine Mucus Urine Other Ur Culture Indicated? Urine Glucose Phenobarbital Cancelled Time Spent with Patient Time Spent with Patient: >50 minutes Time was spent: preparing to see the patient(eg.review tests), obtaining and/or reviewing separately otained hiistory, ordering medications,tests, procedures, referring, communicating with other health foster care social worker, indepentently interpreting results, counseling the patient and care coordination
[2024-04-05] MEDS: Ketorolac 30 MG/ML VIAL IVP ×3 (13:12→23:35)
[2024-04-05 13:47] LABS: Anion Gap 10.7 mmol/L (3-11); BUN 6 mg/dL (7-18); CO2 23.3 mmol/L (21.0-32.0); CREATININE 1.2 mg/dL (0.55-1.02); Chloride 105 mmol/L (98-107); Estimated GFR 60.16 (mL/min/1.73m2); Glucose 96 mg/dL (74-106); Potassium 3.8 mmol/L (3.5-5.1); Sodium 139 mmol/L (136-145)
[2024-04-05 15:51] LABS: Anion Gap 9.4 mmol/L (3-11); BUN 5 mg/dL (7-18); CO2 21.6 mmol/L (21.0-32.0); CREATININE 1.1 mg/dL (0.55-1.02); Calcium 7.4 mg/dL (8.5-10.1); Chloride 105 mmol/L (98-107); Estimated GFR 66.78 (mL/min/1.73m2); Glucose 219 mg/dL (74-106); Potassium 3.6 mmol/L (3.5-5.1); Sodium 136 mmol/L (136-145)
--- NOTE | 2024-04-05 17:20 | PDOC.CMPRO ---
Date of service: 04/05/24 Time of Service: 07:47 Care Management Progress Note Progress Note Text Progress Note Text: Per MD, Kim oral intake is limited by pain which is complicating stabilization of DKA, awaiting further workup to determine if hydronephrosis is worsening with potential for stent placement. CM following. Discharge Potential Discharge Needs: Imaging/labs Anticipated Barriers to Discharge: Medical Status Patient/Family Education Needs: Review discharge instructions, discuss Ask Me Three Transportation: Private vehicle Plan: Anticipate Miladys will return home once medically cleared. She will be driven home via private vehicle. She will follow up with her PCP and discharge plan of care. CM will continue to follow. SDOH(Care Management) Screening Will the Patient Participate in the Screening?: Yes Do you worry about having a steady place to live?: no Problems where you live: no known problems In the past 12 months, have you had to go without electric, gas, oil or water in your home?: no Have you or anyone in your house had to go without enough food to eat?: no Has lack of transportation kept you from medical appointments or from doing things needed for daily living?: no Has anyone in your support network made you feel unsafe for any reason?: no
[2024-04-05] MEDS: Insulin Glargine 300 UNITS/3 ML PEN 20 UNITS SC (18:50)
[2024-04-05] MEDS: Famotidine 20 MG TAB PO (19:40)
[2024-04-05] MEDS: Insulin Aspart 300 UNITS/3 ML PEN SC ×2 (20:02→23:35)
[2024-04-05 20:46] LABS: BUN 5 mg/dL (7-18); CREATININE 1.1 mg/dL (0.55-1.02); Calcium 7.6 mg/dL (8.5-10.1); Chloride 106 mmol/L (98-107); Estimated GFR 66.78 (mL/min/1.73m2); Glucose 214 mg/dL (74-106); Potassium 3.6 mmol/L (3.5-5.1); Sodium 139 mmol/L (136-145)
[2024-04-05 23:51] LABS: Anion Gap 9.9 mmol/L (3-11); BUN 5 mg/dL (7-18); CO2 20.1 mmol/L (21.0-32.0); Calcium 7.7 mg/dL (8.5-10.1); Chloride 108 mmol/L (98-107); Estimated GFR 74.88 (mL/min/1.73m2); Glucose 252 mg/dL (74-106); Potassium 3.9 mmol/L (3.5-5.1); Sodium 138 mmol/L (136-145)
[2024-04-06] VITALS (34 sets, daily range): BP systolic 121–164; BP diastolic 68–93; PULSE 75–113; RESP 17–35; TEMP 36.4–37.5; O2SAT 93–99; BMI 36.6
[2024-04-06] MEDS: Insulin Aspart 300 UNITS/3 ML PEN SC ×6 (03:13→22:42)
[2024-04-06 03:27] LABS: Anion Gap 9.8 mmol/L (3-11); BUN 6 mg/dL (7-18); CO2 21.2 mmol/L (21.0-32.0); Calcium 7.7 mg/dL (8.5-10.1); Chloride 109 mmol/L (98-107); Estimated GFR 74.88 (mL/min/1.73m2); Glucose 166 mg/dL (74-106); Potassium 3.8 mmol/L (3.5-5.1); Sodium 140 mmol/L (136-145)
[2024-04-06] MEDS: Normal Saline Flush 10 ML SYR IVP ×7 (03:36→20:17)
[2024-04-06] MEDS: HYDROmorphone 2 MG/ML SYR 1 MG IVP (03:36)
[2024-04-06] MEDS: Ondansetron 4 MG/2 ML VIAL IVP (03:59)
[2024-04-06] MEDS: Thyroid 60 MG TAB PO (05:50)
[2024-04-06] MEDS: Ketorolac 30 MG/ML VIAL IVP ×2 (05:50→12:52)
[2024-04-06 06:54] LABS: Anion Gap 10.3 mmol/L (3-11); BUN 7 mg/dL (7-18); CO2 20.7 mmol/L (21.0-32.0); CREATININE 1.1 mg/dL (0.55-1.02); Calcium 7.8 mg/dL (8.5-10.1); Chloride 109 mmol/L (98-107); Estimated GFR 66.78 (mL/min/1.73m2); Glucose 146 mg/dL (74-106); Potassium 3.8 mmol/L (3.5-5.1); Sodium 140 mmol/L (136-145)
[2024-04-06] MEDS: Pantoprazole 40 MG VIAL IVP ×2 (08:02→20:17)
[2024-04-06] MEDS: Losartan 50 MG TAB PO (08:03)
[2024-04-06] MEDS: Rosuvastatin 10 MG TAB PO (08:03)
[2024-04-06] MEDS: Famotidine 20 MG TAB PO ×2 (08:03→20:17)
[2024-04-06] MEDS: Tamsulosin 0.4 MG CAPCR 0.8 MG PO (08:04)
--- NOTE | 2024-04-06 08:23 | W.UROLOGYCON ---
Date of service: 04/06/24 Time of Service: 09:08 Assessment and Plan Assessment and plan (1) Calculus of ureterovesical junction (UVJ): Status: Acute Assessment and plan: Her stone has not passed in spite of conservative management. She is not showing signs of sepsis, but with a fever last evening, I believe we should move ahead with surgical treatment. At a minimum, we would do cystoscopy right retrograde pyelogram with stent placement. We would then need to return to the operating room for an outpatient ureteroscopy and stone manipulation at a later date. If there is not much edema around the right ureteral orifice, I may be able to do ureteroscopy and stone removal today. She would still likely need a ureteral stent following the procedure, but that ureteral stent could be removed in the office and would not require a return to the operating room. History of Present Illness History of Present Illness Chief Complaint: Right ureteral stone Narrative: This is a 38-year-old woman who presented to the emergency department with an acute onset of right sided pain along with nausea and vomiting. On evaluation, she was found to have a 4 mm right distal ureteral stone. She was also found to have evidence of DKA. Her stone has been treated conservatively since she has been in the hospital. She has been receiving analgesics, antiemetics, hydration and alpha blockers. She has not passed her stone and has had continued symptoms. In fact, last evening, she developed a fever. This morning, she tells me she has less pain and less nausea but she has not yet passed her stone. She is interested in having her stone removed. This is her first stone episode. She has no history of gout or hyperparathyroidism. She has no previous urologic surgery. Review of Systems Narrative: No fevers or chills No vision change or dysphasia Diabetes. Hypothyroidism No shortness of breath, cough or hemoptysis No chest pain or palpitations Barretts esophagus. No hepatitis, ulcers, jaundice No seizures or strokes No bleeding disorders or anemia No gout PFSH All Active Problems (Updated 04/04/24 @ 11:24 by Leon Mcpherson MD) Pulmonary edema (Acute) Acute respiratory failure with hypoxia (Acute) Acute dehydration (Acute) Vomiting (Acute) TU (acute kidney injury) (Acute) DKA (diabetic ketoacidosis) (Acute) Calculus of ureterovesical junction (UVJ) (Acute) Abnormal auditory perception of both ears (Acute) Vitamin D deficiency (Acute) Fatigue (Acute) Medical History Hypertension Hyperlipidemia DM type 1 (diabetes mellitus, type 1) Asthma Hypothyroidism GERD (gastroesophageal reflux disease) Family History Mother Heart disease Diabetes Social History Smoking/Tobacco Use Status: Never Smoking risk assessment performed?: Yes Alcohol Intake: never Drug use: Never Substance use type: does not use Housing: house Exam Narrative Exam Narrative: She does not appear septic or toxic Her vital signs are documented elsewhere She has no guarding or rebound tenderness She is awake and alert Results Last Vital Signs Temp 36.7 C 04/06/24 08:13 Pulse 100 H 04/05/24 20:01 Resp 20 04/06/24 08:13 BP 145/90 H 04/06/24 08:13 Pulse Ox 98 04/06/24 08:13 Labs 04/04/24 22:00 04/06/24 06:35 Labs: Laboratory Results - last 24 hr 04/05/24 04/05/24 04/05/24 10:57 11:27 15:30 Sodium 139 136 Potassium 3.8 3.6 Chloride 105 105 Carbon Dioxide 23.3 21.6 Anion Gap 10.7 9.4 BUN 6 L 5 L Creatinine 1.2 H 1.1 H Est GFR (CKD-EPI 2020) 60.16 66.78 Glucose 96 219 H Calcium 8.0 L 7.4 L Phenobarbital Cancelled 04/05/24 04/05/24 04/05/24 18:21 20:24 22:21 Sodium 139 Potassium 3.6 Chloride 106 Carbon Dioxide 21.0 Anion Gap 12.0 H BUN 5 L Creatinine 1.1 H Est GFR (CKD-EPI 2020) 66.78 Glucose Cancelled 214 H Cancelled Calcium 7.6 L Phenobarbital 04/05/24 04/06/24 04/06/24 23:35 03:10 06:35 Sodium 138 140 140 Potassium 3.9 3.8 3.8 Chloride 108 H 109 H 109 H Carbon Dioxide 20.1 L 21.2 20.7 L Anion Gap 9.9 9.8 10.3 BUN 5 L 6 L 7 Creatinine 1.0 1.0 1.1 H Est GFR (CKD-EPI 2020) 74.88 74.88 66.78 Glucose 252 H 166 H 146 H Calcium 7.7 L 7.7 L 7.8 L Phenobarbital Imaging Additional studies: I reviewed her imaging studies. Her noncontrast CT shows a right distal ureteral stone with hydronephrosis. I see no additional stones more proximally Subsequent renal ultrasound studies showed low persistent hydronephrosis and no ureteral jet on the right side.
[2024-04-06] MEDS: Insulin Glargine 300 UNITS/3 ML PEN 20 UNITS SC (11:10)
--- NOTE | 2024-04-06 11:33 | PGE_ITS ---
Date of Service Date of service: 04/06/24 Time of Service: 11:33 Assessment and Plan Assessment and plan (1) DKA (diabetic ketoacidosis): Status: Acute Assessment and plan: -initially presented with elevated blood sugars and DKA with AG of 13 when patient attmpted to decreased insulin pump due to N/V from pain related to kidney stone -AG improved AM 04/04, but patient had remained nauseous and unable to tolerate PO intake though the afternoon of 04/05 due to nause and pain from UVJ stone (as noted below) -on the afternoon of 04/05 the patient was able to slow advance her diet and tolerate enough PO intake to dicontinue DKA protocol -continue lentus 20U BID and SSI -continue to monitor Q4h fingerstick (2) Calculus of ureterovesical junction (UVJ): Status: Acute Assessment and plan: -patient dx with UVJ stone on CT on admission -continue to treat with PRN IV dilaudid, as well as IV zofran and ativan for nausea -discussed with Urology [employer] WORK[employer]; -increasing tamsulosin to 0.8mg -starting ketoralac 30mg IV Q6h, will discontinue if Q4hr BMP shows significant increase in Cr -if patient does not pass stone by AM 04/06, Dr. Nuñez will evaluate patient for likely ureteral stent placement -Urologist Dr. Nuñez saw patient early AM 04/06; plan for patient to go to OR afternoon 04/06 for cystoscopy right retrograde pyelogram and stent placement with plans for eventual outpatient return to OR for ureteroscopy and stone manipulation in the event stnt placement does not facilitate stone passage (3) TU (acute kidney injury): Status: Acute Assessment and plan: -secondary to stone as noted above (4) Acute respiratory failure with hypoxia: Status: Acute Assessment and plan: -patient now required supplemental O2 on am 04/04 as O2 sat decreased to high 80's on room air -CXR done and showed vascular congestion -s/p 20mg IV lasix -had been weaned off of O2 as of 04/05, but did have some nocturnal hypoxia -will recommend outpatient sleep study at discharge (5) Pulmonary edema: Status: Acute Assessment and plan: -as noted above Subjective Subjective Interval history since last seen: Patient states that she is doing well today. She is happy that she is able to tolerate PO intake and is no longer on IV insulin, and is happy to be going to the OR with Urology for stent placement to facilitate passing of her kidney stone. Exam Narrative Exam Narrative: Well-appearing female lying in bed and mild distress due to flank pain, ANO x 4, heart regular rate rhythm, lungs diminished in bilateral bases with faint coarse breath sounds bilaterally, abdomen obese, soft, nontender, nondistended Objective Last Vital Signs Temp 97.7 F 04/06/24 11:20 Pulse 100 H 04/05/24 20:01 Resp 31 H 04/06/24 10:00 BP 145/90 H 04/06/24 08:13 Pulse Ox 96 04/06/24 10:28 Laboratory Results - last 24 hr 04/05/24 04/05/24 04/05/24 11:27 15:30 18:21 Sodium 139 136 Potassium 3.8 3.6 Chloride 105 105 Carbon Dioxide 23.3 21.6 Anion Gap 10.7 9.4 BUN 6 L 5 L Creatinine 1.2 H 1.1 H Est GFR (CKD-EPI 2020) 60.16 66.78 Glucose 96 219 H Cancelled Calcium 8.0 L 7.4 L 04/05/24 04/05/24 04/05/24 20:24 22:21 23:35 Sodium 139 138 Potassium 3.6 3.9 Chloride 106 108 H Carbon Dioxide 21.0 20.1 L Anion Gap 12.0 H 9.9 BUN 5 L 5 L Creatinine 1.1 H 1.0 Est GFR (CKD-EPI 2020) 66.78 74.88 Glucose 214 H Cancelled 252 H Calcium 7.6 L 7.7 L 04/06/24 04/06/24 04/06/24 03:10 06:35 11:15 Sodium 140 140 Cancelled Potassium 3.8 3.8 Cancelled Chloride 109 H 109 H Cancelled Carbon Dioxide 21.2 20.7 L Cancelled Anion Gap 9.8 10.3 Cancelled BUN 6 L 7 Cancelled Creatinine 1.0 1.1 H Cancelled Est GFR (CKD-EPI 2020) 74.88 66.78 Cancelled Glucose 166 H 146 H Cancelled Calcium 7.7 L 7.8 L Cancelled Time Spent with Patient Time Spent with Patient: >50 minutes Time was spent: preparing to see the patient(eg.review tests), obtaining and/or reviewing separately otained hiistory, ordering medications,tests, procedures, referring, communicating with other health ambulatory care coordinator, indepentently interpreting results, counseling the patient and care coordination
--- NOTE | 2024-04-06 11:52 | W.ANESPRE ---
General Info Date of Service Date Performed: 04/06/24 Height: 5 ft 4 in Weight: 96.9 kg Body Mass Index (BMI): 36.6 Surgical Procedure: Operation Date: 04/06/24 09:40 Proposed Procedure Side Surgeon p Cystoscopy/Possible Laser/Retrograde/Ureteroscopy/ Possible Stent Right Paulo Nuñez MD Meds Allergies and Home Medications Allergies Allergy/AdvReac Type Severity Reaction Status Date / Time No Known Allergies Allergy Verified 04/03/24 01:19 Home Medication Medication Instructions Recorded albuterol sulfate 90 mcg/actuation 2 puff inhalation Q6H PRN 06/26/21 aerosol inhaler (ProAir HFA) ergocalciferol (vitamin D2) 1,250 1,250 mcg PO .3x week 06/26/21 mcg (50,000 unit) capsule etonogestrel 0.12 mg-ethinyl 1 vag ring vaginal Q4W 06/26/21 estradiol 0.015 mg/24 hr vaginal ring (NuvaRing) insulin glargine U-300 conc 300 30 unit subcut BID 06/26/21 unit/mL (3 mL) subcutaneous pen (Toujeo Max U-300 SoloStar) insulin lispro 100 unit/mL 80 - 120 unit subcut TID 06/26/21 subcutaneous pen (Humalog KwikPen (U-100) Insulin) metformin 850 mg tablet 850 mg PO BID 06/26/21 thyroid (pork) 60 mg tablet 60 mg PO DAILY 06/26/21 ([place] Thyroid) omeprazole 20 mg capsule,delayed 20 mg PO DAILY PRN 06/27/21 release apple cider vinegar 1 tab PO DAILY 12/13/23 famotidine 1 tab PO BID 12/13/23 losartan 50 mg tablet 50 mg PO DAILY 04/03/24 oxycodone 5 mg tablet 5 mg PO Q8H PRN pain #6 tabs 04/03/24 pantoprazole 40 mg tablet,delayed 80 mg PO DAILY 04/03/24 release rosuvastatin 10 mg tablet 10 mg PO DAILY 04/03/24 tamsulosin 0.4 mg capsule 0.4 mg PO DAILY #14 caps 04/03/24 Current Visit Medications: Current Medications Generic Name Dose Route Start Last Admin Trade Name Freq PRN Reason Stop Dose Admin Albuterol Sulfate 2 puff 04/03/24 19:06 Albuterol Hfa 8 Gm 60 Puff Inh IH Q6H PRN PRN Device 1 each 04/03/24 20:00 Inhaler, Assist Device MC DIRECTED [facility] Dextrose 0 gm 04/05/24 18:20 Glucose Oral Gel 15 Gm/37.5 Gm Tube PO DIRECTED PRN Dextrose/Water 0 gm 04/05/24 18:20 Dextrose 50%-Water 25 Gm/50 Ml Syr IVP DIRECTED PRN Famotidine 20 mg 04/05/24 20:00 04/06/24 08:03 Famotidine 20 Mg Tab PO 20 mg BID AMELIE Administration Hydromorphone HCl 1 mg 04/04/24 16:43 04/06/24 03:36 Hydromorphone 2 Mg/Ml Syr IVP 1 mg Q3H PRN PRN Administration Insulin Human Regular 100 unit in 100 mls @ 2 mls/hr 04/03/24 19:15 04/05/24 19:45 Myxredlin IV Infused INFUSION [facility] Titration Protocol 2 UNIT/HR Potassium Chloride/Sodium Chloride 1,000 mls @ 150 mls/hr 04/04/24 00:15 04/05/24 20:18 Kcl 20meq/D5-0.45% Nacl IV Infused [facility]FUSION [facility] Infusion Cefazolin Sodium/Dextrose 2 gm in 50 mls @ 100 mls/hr 04/06/24 09:30 Ancef Duplex IVPB PREOP [facility] IV Miscellaneous Supplies 1 each 04/03/24 14:45 Iv Access IV DIRECTED [facility] Insulin Aspart 0 units 04/05/24 19:00 04/06/24 11:11 Insulin Aspart 300 Units/3 Ml Pen SC 8 units Q4H [facility] Administration Protocol Ketorolac Tromethamine 30 mg 04/05/24 12:00 04/06/24 05:50 Ketorolac 30 Mg/Ml Vial IVP 04/10/24 11:59 30 mg Q6H AMELIE Administration Lorazepam 1 mg 04/04/24 11:39 04/05/24 11:27 Lorazepam 2 Mg/Ml Vial IVP 1 mg Q4H PRN PRN Administration Losartan Potassium 50 mg 04/04/24 08:30 04/06/24 08:03 Losartan 50 Mg Tab PO 50 mg DAILY AMELIE Administration Ondansetron HCl 4 mg 04/03/24 19:01 04/06/24 03:59 Ondansetron 4 Mg/2 Ml Vial IVP 4 mg Q4H PRN PRN Administration Pantoprazole Sodium 40 mg 04/04/24 08:00 04/06/24 08:02 Pantoprazole 40 Mg Vial IVP 40 mg Q12H AMELIE Administration Rosuvastatin Calcium 10 mg 04/04/24 08:30 04/06/24 08:03 Rosuvastatin 10 Mg Tab PO 10 mg DAILY AMELIE Administration Sodium Chloride 0 ml 04/03/24 14:38 04/06/24 08:02 Normal Saline Flush 10 Ml Syr IVP 10 ml PRN PRN Administration Sodium Chloride 0 ml 04/03/24 20:00 04/06/24 11:14 Normal Saline Flush 10 Ml Syr IVP 10 ml BID AMELIE Administration Sodium Chloride 0 ml 04/03/24 14:38 Normal Saline 10 Ml Vial IJ DIRECTED PRN Tamsulosin HCl 0.8 mg 04/06/24 08:30 04/06/24 08:04 Tamsulosin 0.4 Mg Capcr PO 0.8 mg DAILY AMELIE Administration Thyroid 60 mg 04/04/24 06:00 04/06/24 05:50 Thyroid 60 Mg Tab PO 60 mg DAILY@0600 AMELIE Administration Zolpidem Tartrate 5 mg 04/03/24 19:08 Zolpidem 5 Mg Tab PO HS PRN MAY REPEAT X1 PRN PFSH Active Problems Active Problems: Problem Status Onset Code Pulmonary edema J81.1 Acute respiratory failure with hypoxia J96.01 Acute dehydration E86.0 Vomiting R11.10 TU (acute kidney injury) N17.9 DKA (diabetic ketoacidosis) E11.10 Calculus of ureterovesical junction (UVJ) N20.1 Abnormal auditory perception of both ears H93.293 Vitamin D deficiency E55.9 Fatigue R53.83 Medical History Medical History Hypertension Hyperlipidemia DM type 1 (diabetes mellitus, type 1) Asthma Hypothyroidism GERD (gastroesophageal reflux disease) Tobacco Smoking/Tobacco Use Status: Never Alcohol Alcohol Intake: never Substance Use Substance use: Never Substance use type: does not use Vital Signs and Lab Results Vital Signs Most Recent Vital Signs in EMR: Most Recent Vital Signs Temp Pulse Resp BP Pulse Ox 36.5 C 100 H 31 H 145/90 H 96 04/06/24 11:20 04/05/24 20:01 04/06/24 10:00 04/06/24 08:13 04/06/24 10:28 Point of Care Results Point of Care Results: Finger Stick Blood Glucose 284 04/06/24 11:11 Lab Results 04/04/24 22:00 04/06/24 06:35 Blood Type / Crossmatch: No Data to Display Complete Blood Count: White Blood Count 13.34 10^3/uL (4.4-10.8) H 04/04/24 22:00 Red Blood Count 3.68 10^6/uL (3.93-5.22) L 04/04/24 22:00 Hemoglobin 11.2 g/dL (11.2-15.7) 04/04/24 22:00 Hematocrit 34.3 % (36.0-46.0) L 04/04/24 22:00 Platelet Count 244 10^3/uL (130-400) 04/04/24 22:00 Complete Metabolic Panel: Sodium 140 mmol/L (136-145) 04/06/24 06:35 Potassium 3.8 mmol/L (3.5-5.1) 04/06/24 06:35 Chloride 109 mmol/L (98-107) H 04/06/24 06:35 Carbon Dioxide 20.7 mmol/L (21.0-32.0) L 04/06/24 06:35 BUN 7 mg/dL (7-18) 04/06/24 06:35 Creatinine 1.1 mg/dL (0.55-1.02) H 04/06/24 06:35 Est GFR (CKD-EPI 2020) 66.78 (mL/min/1.73m2) 04/06/24 06:35 Calcium 7.8 mg/dL (8.5-10.1) L 04/06/24 06:35 Albumin 3.9 g/dL (3.4-5.0) 04/03/24 02:35 Glucose 146 mg/dL (74-106) H 04/06/24 06:35 Liver Function Panel: Alanine Aminotransferase (ALT/SGPT) 32 U/L (14-59) 04/03/24 02:35 Aspartate Amino Transf (AST/SGOT) 21 U/L (15-37) 04/03/24 02:35 Coagulation Panel: No Data to Display Cardiac Panel: No Data to Display Arterial Blood Gas: No Data to Display Venous Blood Gas: Venous Blood pH 7.37 (7.31-7.41) 04/03/24 17:35 Venous Blood Partial Pressure O2 29 mmHg 04/03/24 17:35 Venous Blood Partial Pressure CO2 35 mmHg (41-51) L 04/03/24 17:35 Venous Blood Oxygen Saturation 54 % 04/03/24 17:35 Venous Blood HCO3 20 mmol/L (23-28) L 04/03/24 17:35 Venous Blood Base Excess -5 mmol/L (-2-3) L 04/03/24 17:35 Venous Blood Total Carbon Dioxide 18 mmol/L (24-29) L 04/03/24 17:35 Pancreas Panel: Lipase 23 U/L (16-77) 04/03/24 02:35 Thyroid Panel: No Data to Display Infectious Disease: No Data to Display Blood Cultures: No Data to Display Toxicology Panel: No Data to Display Panel: Urine HCG, Qualitative Pending 04/06/24 12:30 Serum HCG, Qualitative Negative 04/03/24 02:35 Anesthesia Assessment and Plan Anesthesia History Personal History: No History of Anesthesia Complications Family History: No Family History of Anesthesia Complications Exercise Tolerance Exercise Tolerance: Metabolic Equivalents>4 Pertinent Negatives Pertinent Negatives: No Symptoms of GERD, No Major Cardiovascular Symptoms or Complaints and No History of CVA/TIA Cardiac & Pulmonary Exam Cardiac Exam: Normal S1/S2 Heart Sounds Pulmonary Exam: Clear Bilateral Breath Sounds Implantable Cardiac Device Does patient have a Pacemaker or an ICD?: No Airway Exam Known Difficult Airway: No Mallampati Class: 2 Mouth Opening: Normal (> 3cm) Thyromental Distance: Greater than 3 cm Neck Range of Motion: Full ROM Neck Circumference: Normal Teeth Condition: Normal Dentition ASA Classification ASA Score: ASA 2 Emergency Case?: No NPO Status NPO Status: NPO Clears >2 hours, Solids >8 hours Status Status: Negative HCG Anesthesia Plan Resuscitation Status: Full Code Anesthesia Technique: General Anesthesia Airway Planned: LMA Monitors Used: Standard Monitors
--- NOTE | 2024-04-06 12:36 | CMPROGNOTE_ITS ---
Date of service: 04/06/24 Time of Service: 12:36 Care Management Progress Note Progress Note Text Progress Note Text: Miladys was sitting up in bed when CM met with her. She stated that she met with Dr. Nuñez, Urology, and he discussed bringing her to the OR later today for cystoscopy and possible stent placement. Per MD, she is tolerating PT intake and is no longer on IV insulin. Miladys stated that she feels much better today. She expressed concern about needing documentation completed for work; she stated that she only has approved time off through today and needs to have FMLA paperwork filled out. CM offered to have her send the forms through email to as sist her with having them filled out. CM will continue to follow. Discharge Potential Discharge Needs: Consult Consult Services Needed: Other (urology) and PCP F/U Appt Anticipated Barriers to Discharge: Medical Status Patient/Family Education Needs: Review discharge instructions, discuss Ask Me Three Transportation: Private vehicle Plan: Anticipate Miladys will return home once medically cleared. She will be driven home via private vehicle. She will follow up with her PCP and discharge plan of care. CM will continue to follow. SDOH(Care Management) Screening Will the Patient Participate in the Screening?: Yes Do you worry about having a steady place to live?: no Problems where you live: no known problems In the past 12 months, have you had to go without electric, gas, oil or water in your home?: no Have you or anyone in your house had to go without enough food to eat?: no Has lack of transportation kept you from medical appointments or from doing things needed for daily living?: no Has anyone in your support network made you feel unsafe for any reason?: no
[2024-04-06] MEDS: Lactated Ringers 1,000 ML 50 ML IV (14:21)
[2024-04-06] MEDS: ceFAZolin 2 GM/50 ML BAG 100 GM (14:21)
[2024-04-06] MEDS: Lidocaine 2% Jelly 11 ML SYR (14:40)
[2024-04-06] MEDS: Omnipaque 300 MG/ML 50 ML BTL (14:51)
--- NOTE | 2024-04-06 14:55 | W.PM.OP ---
Date of service: 04/06/24 Time of Service: 14:55 Operative Note Operative Note DATE OF PROCEDURE: 04/06/24 PRE-OP DIAGNOSIS: Right ureteral stone SURGEON: Paulo Nuñez ANESTHESIA TYPE: Local By Surgeon and General LMA/ETT Refer to Anesthesia Record ESTIMATED BLOOD LOSS: 5 PATHOLOGY: other (stone for chemical analysis) COMPLICATIONS: None Patient was transported to: PACU Patient's condition: stable Implants: 4.8 british virgin islander by 22 to 30 cm right ureteral stent (with string attached) Indications: This is a 38-year-old woman who presented to the emergency department with right-sided renal colic. She was found to have a right distal ureteral stone. She was treated conservatively, but her stone did not pass. She presents now for stone manipulation Findings: Stone had passed into the bladder and was drained through the cystoscope No additional stones in the remainder of the ureter Procedure Description: The patient was given preoperative IV antibiotics and brought to the operating room on 04/06/2024. After successful induction of general anesthesia, she was placed in the dorsal lithotomy position. Her genitalia was prepped and draped. 2% Xylocaine jelly was instilled into the urethra to act as a local anesthetic. A 22 Jamaican rigid cystoscope was passed through the urethra into the bladder. The bladder was drained. In the urine that was drained through the cystoscope, a small stone was identified. The stone was collected and sent to pathology for chemical analysis. We then inspected the bladder with a 30 degree lens. The left ureteral orifice appeared normal. The right orifice was a bit edematous. I then did a retrograde pyelogram by injecting Omnipaque through a 5 Jamaican access catheter into the right ureteral orifice. The injection was done under fluoroscopic guidance. The distal ureter was narrowed before the ureter dilated just above the level of the ureterovesical junction. To make sure that there were no residual stone fragments visible. We passed a guidewire through the lumen of the access catheter and decided to pass a semirigid ureteroscope. The scope was passed through the urethra into the bladder. I negotiated the scope into the right ureteral orifice and advanced the scope up the ureter. No remaining stone fragments were identified. The scope was removed. We elected to place a temporary ureteral stent. We chose a 4.8 Jamaican variable length stent and advanced it over the guidewire. The proximal end of the stent was curled in the renal pelvis and the distal end was curled within the bladder. The positioning of the stent was confirmed both fluoroscopically and cystoscopically. The safety string was left in place and brought out through the patient's urethra. The string was then tucked into the patient's vaginal cavity. The patient tolerated this procedure well with no complications.
--- NOTE | 2024-04-06 15:02 | DI.RAD_ITS ---
Exam(s) XR RETROGRADE IN OR EXAM: XR RETROGRADE IN OR CLINICAL HISTORY: Calculus of ureterovesical junction (UVJ). TECHNIQUE: Fluoroscopy was provided for the referring physician for guidance with performing retrogr melissa procedure. COMPARISON: US US RENAL from 04/05/2024 FINDINGS: Please see procedure note for details. Fluoro time: 8.7 seconds RADIATION DOSE DELIVERED: Ka,r=2.37 mGy
--- NOTE | 2024-04-06 15:32 | W.ANESPOSTOP ---
Postoperative Evaluation Date, Time and Location Date Performed: 04/06/24 Time Performed: 15:32 Patient Location: Intensive Care Unit Vital Signs Most Recent Imported Vital Signs: Most Recent Vital Signs Temp Pulse Resp BP Pulse Ox 36.5 C 90 20 128/82 95 04/06/24 15:15 04/06/24 12:56 04/06/24 15:15 04/06/24 15:15 04/06/24 15:15 Pain Score Most Recent Pain Score: Most Recent Pain Score Pain Level 0 04/06/24 15:15 Assessment Mental Status: Awake (Alert & Oriented to Patient Baseline) Airway and Respiratory Function: Patent airway with normal (patient baseline) respiratory exam Cardiovascular Function: Hemodynamically Stable Hydration Status: Adequately Hydrated Nausea & Vomiting: No Nausea or Vomiting Pain: Pt. Denies Any Pain Peripheral Nerve Block: Patient did not receive a nerve block
[2024-04-06 15:38] LABS: Anion Gap 11.7 mmol/L (3-11); BUN 7 mg/dL (7-18); CO2 22.3 mmol/L (21.0-32.0); CREATININE 0.9 mg/dL (0.55-1.02); Calcium 8.3 mg/dL (8.5-10.1); Chloride 108 mmol/L (98-107); Estimated GFR 84.97 (mL/min/1.73m2); Glucose 197 mg/dL (74-106); Potassium 3.7 mmol/L (3.5-5.1); Sodium 142 mmol/L (136-145)
[2024-04-06] MEDS: Normal Saline 10 ML VIAL IJ (20:18)
[2024-04-06] MEDS: Zolpidem 5 MG TAB PO (22:43)
[2024-04-07] VITALS (9 sets, daily range): BP systolic 121–151; BP diastolic 58–91; PULSE 51–93; RESP 17–23; TEMP 36.8–37.6; O2SAT 92–97
[2024-04-07] MEDS: Ketorolac 30 MG/ML VIAL IVP ×2 (00:44→08:41)
[2024-04-07] MEDS: Normal Saline Flush 10 ML SYR IVP ×4 (00:45→08:51)
[2024-04-07] MEDS: Insulin Aspart 300 UNITS/3 ML PEN SC ×2 (03:53→07:57)
[2024-04-07] MEDS: Thyroid 60 MG TAB PO (05:47)
[2024-04-07] MEDS: Normal Saline 10 ML VIAL IJ (05:50)
[2024-04-07 06:35] LABS: HCT 33.5 % (36.0-46.0); HGB 11.1 g/dL (11.2-15.7); MCHC 33.1 % (32.0-36.0); MCV 91 fL (80-95); RDW 12.1 % (11.7-14.6); RDW-SD 39.7 fL; WBC 8.71 10^3/uL (4.4-10.8)
[2024-04-07 06:55] LABS: Anion Gap 12.8 mmol/L (3-11); BUN 9 mg/dL (7-18); CO2 19.2 mmol/L (21.0-32.0); CREATININE 0.9 mg/dL (0.55-1.02); Calcium 8.3 mg/dL (8.5-10.1); Chloride 109 mmol/L (98-107); Estimated GFR 84.97 (mL/min/1.73m2); Glucose 253 mg/dL (74-106); Potassium 4.2 mmol/L (3.5-5.1); Sodium 141 mmol/L (136-145)
--- NOTE | 2024-04-07 07:00 | PGE_ITS ---
Date of Service Date of service: 04/07/24 Time of Service: 07:00 Assessment and Plan Assessment and plan (1) Calculus of ureterovesical junction (UVJ): Assessment and plan: Her stone has been removed. As long as all of her other medical conditions are stable, she should be able to go home later today. We recommend a follow-up appointment in my office in 6 to 8 weeks. I will do a [id number] ultrasound at that time to rule out postprocedural hydronephrosis. We should also be able to review her stone analysis and come up with plans for stone prevention. Subjective Subjective Interval history since last seen: She has had some blood in the urine overnight as expected. She is not having flank pain. She has no vomiting and she has been able to tolerate oral medications and nutrition. Exam Narrative Exam Narrative: She does not appear septic or toxic Her vital signs are documented elsewhere She is awake and alert I went ahead and removed her stent in its entirety today at the bedside Objective Last Vital Signs Temp 37.6 C H 04/07/24 05:40 Pulse 51 L 04/07/24 04:01 Resp 17 04/07/24 06:00 BP 121/58 L 04/07/24 04:01 Pulse Ox 96 04/07/24 06:00 Laboratory Results - last 24 hr 04/06/24 04/06/24 04/06/24 11:15 12:30 15:23 Sodium Cancelled 142 Potassium Cancelled 3.7 Chloride Cancelled 108 H Carbon Dioxide Cancelled 22.3 Anion Gap Cancelled 11.7 H BUN Cancelled 7 Creatinine Cancelled 0.9 Est GFR (CKD-EPI 2020) Cancelled 84.97 Glucose Cancelled 197 H Calcium Cancelled 8.3 L Serum HCG, Qual Urine HCG, Qual Cancelled 04/06/24 04/07/24 Unknown 05:50 Sodium 141 Potassium 4.2 Chloride 109 H Carbon Dioxide 19.2 L Anion Gap 12.8 H BUN 9 Creatinine 0.9 Est GFR (CKD-EPI 2020) 84.97 Glucose 253 H Calcium 8.3 L Serum HCG, Qual Cancelled Urine HCG, Qual Time Spent with Patient Time Spent with Patient: <25 minutes Time was spent: preparing to see the patient(eg.review tests), obtaining and/or reviewing separately otained hiistory, referring, communicating with other health adult daycare coordinator and counseling the patient
[2024-04-07] MEDS: Pantoprazole 40 MG VIAL IVP (07:12)
[2024-04-07] MEDS: Losartan 50 MG TAB PO (07:12)
[2024-04-07] MEDS: Rosuvastatin 10 MG TAB PO (07:12)
[2024-04-07] MEDS: Tamsulosin 0.4 MG CAPCR 0.8 MG PO (07:12)
[2024-04-07] MEDS: Famotidine 20 MG TAB PO (07:13)
--- NOTE | 2024-04-07 08:31 | DSE_ITS ---
Date of service: 04/07/24 Time of Service: 08:31 DS: Diagnosis Discharge Diagnosis (1) DKA (diabetic ketoacidosis): Status: Acute Asessment and Plan: -initially presented with elevated blood sugars and DKA with AG of 13 when patient attmpted to decreased insulin pump due to N/V from pain related to kidney stone -AG improved AM 04/04, but patient had remained nauseous and unable to tolerate PO intake though the afternoon of 04/05 due to nause and pain from UVJ stone (as noted below) -on the afternoon of 04/05 the patient was able to slow advance her diet and tolerate enough PO intake to dicontinue DKA protocol -was continued lantus 20U BID and SSI -given AM dose of lantus prior to discharge and plan for patient to replace/resume her insulin pump upon returning home (2) Calculus of ureterovesical junction (UVJ): Asessment and Plan: -patient dx with UVJ stone on CT on admission -continue to treat with PRN IV dilaudid, as well as IV zofran and ativan for nausea -discussed with Urology [facility]; -increasing tamsulosin to 0.8mg -starting ketoralac 30mg IV Q6h, will discontinue if Q4hr BMP shows significant increase in Cr -patient s/p cystoscopy right retrograde pyelogram and stent placement on 04/06 that resulted in passage of stone (3) Acute respiratory failure with hypoxia: Status: Acute Asessment and Plan: -patient now required supplemental O2 on am 04/04 as O2 sat decreased to high 80's on room air -CXR done and showed vascular congestion -s/p 20mg IV lasix -had been weaned off of O2 as of afternoon 04/05, but did have some nocturnal hypoxia -will recommend outpatient sleep study at discharge Discharge Plan Disposition Patient Disposition: Home Condition: Good Discharge Details Reason For Visit: Kidney stone, DKA Admit Date/Time: 04/03/24 19:02 Admit Provider: Hu Triplett Attending Provider: Hu Triplett Primary Care Provider: Te Fan Hospital Course Hospital Course: Patient initially presented to the ED and was found to have kidney stone with mild hydro nephrosis and was sent home with pain management. However, due to reported p.o. intake and nausea that she tried decreasing the amount of insulin she was receiving from her pump when she presented back to the emergency department for ongoing pain and nausea was also found to be in DKA. She was on DKA protocol with insulin drip for greater than 48 hours for ongoing nausea and vomiting and inability to tolerate p.o. intake despite her anion gap closing. This prompted consultation with urology. The patient for cystoscopy right retrograde pyelogram and stent placement which resulted in stone passage. And the patient was no longer in DKA and is tolerating p.o. intake in addition to having her right UPJ stone passed, was determined that she was stable for discharge home. Home Meds and New Rx's Prescriptions: Continued etonogestrel-ethinyl estradiol [NuvaRing] 0.12-0.015 mg/24 hr ring 1 vag ring vaginal Q4W Rx Instructions: leave in place for 3 weeks of a 4-week cycle albuterol sulfate [ProAir HFA] 90 mcg/actuation HFA aerosol inhaler 2 puff inhalation Q6H PRN thyroid (pork) [[place] Thyroid] 60 mg tablet 60 mg PO DAILY ergocalciferol (vitamin D2) 1,250 mcg (50,000 unit) capsule 1,250 mcg PO .3x week insulin lispro [Humalog KwikPen Insulin] 100 unit/mL insulin pen 80 - 120 unit subcut TID insulin glargine U-300 conc [Toujeo Max U-300 SoloStar] 300 unit/mL (3 mL) insulin pen 30 unit subcut BID metformin 850 mg tablet 850 mg PO BID omeprazole 20 mg capsule,delayed release(DR/EC) 20 mg PO DAILY PRN famotidine 1 tab PO BID apple cider vinegar 1 tab PO DAILY losartan 50 mg tablet 50 mg PO DAILY Patient Comments: TAKE ONE TABLET BY MOUTH EVERY DAY pantoprazole 40 mg tablet,delayed release (DR/EC) 80 mg PO DAILY Patient Comments: TAKE ONE TABLET BY MOUTH EVERY DAY 30 MIN BEFORE SUPPER rosuvastatin 10 mg tablet 10 mg PO DAILY Patient Comments: TAKE ONE TABLET BY MOUTH AT BEDTIME tamsulosin 0.4 mg capsule 0.4 mg PO DAILY Qty: 14 0RF oxycodone 5 mg tablet 5 mg PO Q8H PRN (Reason: pain) Qty: 6 0RF Discharge Instructions Activity:: Activity as Tolerated Equipment/Supplies:: No Equipment Needed Diet:: As Tolerated Discharge Orders Discharge Orders: Discharge Order (Routine); Ordered 04/07/24 Ordered By: Leon Mcpherson DS: Summary Time Spent with Patient providing and/or coordinating discharge services: Greater than 30 minutes Status at Discharge Functional status at discharge: independent ambulation Overall status at discharge: patient is back to baseline Mental Status: mental status grossly normal Speech and Movement: speech and movement normal Mood: congruent mood Affect: normal affect Quality:SDOH Health Related Social Needs: No Data to Display Exam Narrative Exam Narrative: Well-appearing female lying in no acute distress, ANO x 4, heart regular rate rhythm, lungs diminished in bilateral bases with faint coarse breath sounds bilaterally, abdomen obese, soft, nontender, nondistended Psych Mental Status: mental status grossly normal Speech and Movement: speech and movement normal Mood: congruent mood Affect: normal affect DS: Data Vitals/I&O Vitals and I&O: Vital Signs Temperature 99.0 F 04/07/24 07:49 Temperature Source Temporal Artery Scan 04/07/24 07:49 Pulse 68 04/07/24 07:49 Pulse 67 04/07/24 06:00 Respiratory Rate 17 04/07/24 06:00 Respiratory Effort Normal, Non-Labored 04/07/24 07:49 Respiratory Depth Normal 04/07/24 07:49 Respiratory Pattern Normal 04/07/24 07:49 Blood Pressure 121/58 L 04/07/24 04:01 Blood Pressure Mean 78 04/07/24 04:01 Blood Pressure Position Supine 04/06/24 20:30 Pulse Oximetry 97 04/07/24 07:49 Oxygen Delivery Method Room Air 04/07/24 07:49 Oxygen Flow Rate 0 04/07/24 07:49 Pain Level 0 04/07/24 07:49 Intake & Output 04/06/24 04/07/24 04/07/24 17:59 05:59 17:59 Intake Total 550 / 550 600 / 1150 240 / 240 Output Total 650 / 650 975 / 1625 Balance -100 / -100 -375 / -475 240 / 240 Weight 213 lb 10.047 oz 208 lb 1.862 oz Intake: IV 200 / 200 Oral 350 / 350 600 / 950 240 / 240 Output: Urine 650 / 650 975 / 1625 Other: Urine Color Dark Eleni Dark Red Urine Appearance Clear Stones/Calculi Urine Odor None Strain Urine Result Negative-No Stones/Gravel Positive-Gravel Seen Comment straining all urine Dr Nuñez in and removed pt's ureteral stent this am. Urine is bloody, pt voided 250cc this am without pain. Pt continues to have LR infusing at 50cc/hr. Data Completed and Pending Labs on day of discharge: Labs from last 24 hours 04/07/24 04/06/24 04/06/24 05:50 Unknown 15:23 WBC 8.71 RBC 3.70 L Hgb 11.1 L Hct 33.5 L MCV 91 MCH 30.0 MCHC 33.1 RDW 12.1 Plt Count MPV Sodium 141 142 Potassium 4.2 3.7 Chloride 109 H 108 H Carbon Dioxide 19.2 L 22.3 Anion Gap 12.8 H 11.7 H BUN 9 7 Creatinine 0.9 0.9 Est GFR (CKD-EPI 2020) 84.97 84.97 Glucose 253 H 197 H Calcium 8.3 L 8.3 L Serum HCG, Qual Cancelled Urine HCG, Qual Stone Source Stone Comment Kidney Stone Analysis 04/06/24 04/06/24 04/06/24 14:50 12:30 11:15 WBC RBC Hgb Hct MCV MCH MCHC RDW Plt Count MPV Sodium Cancelled Potassium Cancelled Chloride Cancelled Carbon Dioxide Cancelled Anion Gap Cancelled BUN Cancelled Creatinine Cancelled Est GFR (CKD-EPI 2020) Cancelled Glucose Cancelled Calcium Cancelled Serum HCG, Qual Urine HCG, Qual Cancelled Stone Source Pending Stone Comment Pending Kidney Stone Analysis Pending Preliminary micro results at discharge 04/04/24 20:15 Urine Culture - Preliminary Urine - Clean Catch Gram Positive Rosalia,Mixed PFSH All Active Problems (Updated 04/07/24 @ 08:31 by Leon Mcpherson MD) Pulmonary edema (Acute) Acute respiratory failure with hypoxia (Acute) Acute dehydration (Acute) Vomiting (Acute) TU (acute kidney injury) (Acute) DKA (diabetic ketoacidosis) (Acute) Abnormal auditory perception of both ears (Acute) Vitamin D deficiency (Acute) Fatigue (Acute) Medical History (Updated 04/07/24 @ 08:31 by Leon Mcpherson MD) Calculus of ureterovesical junction (UVJ) Gastroparesis Per patient. Hypertension Hyperlipidemia DM type 1 (diabetes mellitus, type 1) Asthma Hypothyroidism GERD (gastroesophageal reflux disease) Family History Mother Heart disease Diabetes Social History Smoking/Tobacco Use Status: Never Smoking risk assessment performed?: Yes Alcohol Intake: never Drug use: Never Substance use type: does not use Housing: house Time Spent with Patient Time Spent with Patient: <45 minutes Time was spent: preparing to see the patient(eg.review tests), obtaining and/or reviewing separately otained hiistory, ordering medications,tests, procedures, referring, communicating with other health memory care program resident, indepentently interpreting results, counseling the patient and care coordination
[2024-04-07] MEDS: Insulin Glargine 300 UNITS/3 ML PEN 30 UNITS SC (08:40)
[2024-04-07] MEDS: Ondansetron 4 MG/2 ML VIAL IVP (08:51)
--- NOTE | 2024-04-07 14:04 | PDOC.CMDIS ---
Date of service: 04/07/24 Time of Service: 14:04 LACE Index Scoring Tool Questions: Length of Stay (in days): 4 - 6 Was the patient admitted via the E.D.?: Yes Comorbidities: Diabetes w/o Complication E.D. Visits: 2 Answers: Total Score: 10 Risk of Readmission: High Risk Care Management Discharge Plan Reason for Hospitalization: Kidney Stone, DKA Discharge Plan: Miladys returned home today with no new services. She was driven home via private vehicle by family. She will follow up with her PCP and discharge plan of care. She was happy to be going home. Patient/Family Education Needs: Review discharge instructions and limitations, discussion of self care needs including ask me three. SDMA Health Related Social Needs: No Data to Display
[2024-04-12 22:04] LABS: Source: Right Ureter
== END 2024-04-07 09:45 | disposition home or self-care (01) | DRG 659 ==
LOC: ER 19:23 → ICU 04-04 08:28
PROVIDERS: Family Medicine; Urology; Admitting Provider General Practice; Emergency Provider Emergency Medicine; PCP Physician Assistant; Visit Provider General Practice
PROC: 0TCB8ZZ Extirpation of Matter from Bladder, Via Natural or Artificial Opening Endoscopic (ICD-10-PCS; CPT 52352; principal; 2024-04-06 09:30)
DX: N13.2 Hydronephrosis with renal and ureteral calculous obstruction (principal); E10.10 Type 1 diabetes mellitus with ketoacidosis without coma; J81.0 Acute pulmonary edema; J96.01 Acute respiratory failure with hypoxia; N17.9 Acute kidney failure, unspecified; R50.9 Fever, unspecified; R11.2 Nausea with vomiting, unspecified; E03.9 Hypothyroidism, unspecified; K22.70 Barrett's esophagus without dysplasia; J45.909 Unspecified asthma, uncomplicated; I10 Essential (primary) hypertension; K21.9 Gastro-esophageal reflux disease without esophagitis; E78.5 Hyperlipidemia, unspecified; E55.9 Vitamin D deficiency, unspecified; R53.83 Other fatigue; Z96.41 Presence of insulin pump (external) (internal); E10.43 Type 1 diabetes mellitus with diabetic autonomic (poly)neuropathy; K31.84 Gastroparesis
CPT/HCPCS: 52352; 52332; 36410; 00123; 36415; 36416; 36592; 76770; 80048; 82805; 82947; 84145; 85027; 96361; 96365; 96366; 96375; 96376; 99291; 71045; 74420; 80184; 81003; 81015; 81025; 82365; 85025; 87086; 99222; 99233; 99238; J0131; J0690; J1100; J1170; J1815; J1885; J1941; J2001; J2060; J2250; J2270; J2405; J2470; J2704; J2765; Q9967

== ENCOUNTER 2024-10-24 16:31 | Outpatient (CLI) | payer BC, SELFPAY ==
--- NOTE | 2024-10-24 | DI.RAD_ITS ---
Exam(s) XR CHEST 2V PA LATERAL EXAM: XR CHEST 2V PA LATERAL CLINICAL HISTORY: Acute asthma exacerbation, J45.901 TECHNIQUE: 2D digital imaging was performed of the chest. Two images were obtained. PA and lateral views were obtained. COMPARISON: CR XR PORTABLE CHEST AP from 04/04/2024 FINDINGS: MEDIASTINUM: Normal. HEART: Normal. PULMONARY VASCULATURE: Normal. LUNGS: Clear. PLEURAL SPACE: No pleural effusion or pneumothorax. BONE:Within normal limits for the patient's age. OTHER FINDINGS:Normal. IMPRESSION: No acute pulmonary findings. DATA REPOSITORY: RADIATION DOSE DELIVERED:
== END 2024-10-24 16:51 ==
LOC: DI 16:31
PROVIDERS: PCP Physician Assistant; Visit Provider Nurse Practitioner Family
DX: J45.901 Unspecified asthma with (acute) exacerbation (principal)
CPT/HCPCS: 71046

== ENCOUNTER 2024-11-06 03:15 | Outpatient (CLI) | payer BC, SELFPAY ==
[2024-11-06 15:36] LABS: Abs Immature Grans 0.02 10^3/uL (0.0-0.06); Absolute Basophil Count 0.05 10^3/uL (0.0-0.2); Absolute Eosinophil Count 0.26 10^3/uL (0.0-0.7); Absolute Lymphocyte Count 2.09 10^3/uL (1.2-3.4); Absolute Monocyte Count 0.41 10^3/uL (0.1-0.8); Absolute Neutrophil Count 7.15 10^3/uL (1.2-6.7); Basophils % 0.5 %; Eosinophils % 2.6 %; HCT 36.1 % (36.0-46.0); HGB 11.8 g/dL (11.2-15.7); Immature Grans % 0.2 %; Lymphocytes % 20.9 %; MCH 28.7 pg (27.0-33.0); MCHC 32.7 % (32.0-36.0); MCV 88 fL (80-95); MPV 10.9 fL (8.0-11.0); Monocytes % 4.1 %; Neutrophils % 71.7 %; Platelet Count 254 10^3/uL (130-400); RBC 4.11 10^6/uL (3.93-5.22); RDW 13.2 % (11.7-14.6); RDW-SD 42.5 fL; WBC 9.98 10^3/uL (4.4-10.8)
[2024-11-06 15:37] LABS: Hemoglobin A1C 7.4 % (<5.7)
[2024-11-06 16:35] LABS: ALT 24 U/L (14-59); AST 18 U/L (15-37); Albumin 3.6 g/dL (3.4-5.0); Alkaline Phosphatase 85 U/L (46-116); Anion Gap 14.7 mmol/L (3-11); BUN 17 mg/dL (7-18); Bilirubin, Total 0.21 mg/dL (0.2-1.0); CO2 20.3 mmol/L (21.0-32.0); Calcium 9.4 mg/dL (8.5-10.1); Calculated LDL 50 mg/dL (<100); Chloride 105 mmol/L (98-107); Cholesterol 153 mg/dL (<200); Estimated GFR 74.41 (mL/min/1.73m2); Glucose 216 mg/dL (74-106); HDL Cholesterol 76 mg/dL (40-60); Potassium 3.5 mmol/L (3.5-5.1); Sodium 140 mmol/L (136-145); Total Protein 7.3 g/dL (6.4-8.2); Triglyceride 139 mg/dL (<150); Vitamin B12 397 pg/mL (193-986); Vitamin D 25 Total 22.6 ng/mL (30-100)
== END 2024-11-06 03:16 | disposition home or self-care (01) ==
LOC: LBO 03:15
PROVIDERS: PCP Physician Assistant; Visit Provider Nurse Practitioner Family
DX: E10.9 Type 1 diabetes mellitus without complications (principal); E03.9 Hypothyroidism, unspecified; Z00.00 Encounter for general adult medical examination without abnormal findings; E55.9 Vitamin D deficiency, unspecified; E53.8 Deficiency of other specified B group vitamins
CPT/HCPCS: 36415; 80053; 80061; 82306; 82607; 83036; 84443; 85025

== ENCOUNTER 2025-02-14 02:20 | Outpatient (CLI) | payer BC, SELFPAY ==
[2025-02-14 10:07] LABS: COMMENT (LAB VIEW ONLY) 183.62 mg/dL; Microalb ug/mg Crea 18.8 ug/mg Cr
[2025-02-14 10:17] LABS: Anion Gap 13.6 mmol/L (3-11); BUN 11 mg/dL (7-18); CO2 20.4 mmol/L (21.0-32.0); CREATININE 0.7 mg/dL (0.55-1.02); Calcium 9.1 mg/dL (8.5-10.1); Calculated LDL 59 mg/dL (<100); Chloride 108 mmol/L (98-107); Cholesterol 149 mg/dL (<200); Estimated GFR 114.16 (mL/min/1.73m2); Glucose 191 mg/dL (74-106); HDL Cholesterol 66 mg/dL (>or=50); Sodium 142 mmol/L (136-145); TSH 3.96 uIU/mL (0.36-3.74); Triglyceride 124 mg/dL (<150)
== END 2025-02-14 02:21 | disposition home or self-care (01) ==
PROVIDERS: PCP Physician Assistant; Visit Provider Registered Nurse Critical Care Medicine
DX: E10.65 Type 1 diabetes mellitus with hyperglycemia (principal)
CPT/HCPCS: 36415; 80048; 80061; 82043; 82570; 83036; 84443

== ENCOUNTER 2025-03-13 09:37 | Outpatient (REF) | payer BC, SELFPAY ==
[2025-03-19 18:06] LABS: Midnight Cortisol <50 ng/dL (<100)
== END 2025-03-13 09:38 | disposition home or self-care (01) ==
LOC: LBN 09:37
PROVIDERS: PCP Physician Assistant; Visit Provider Registered Nurse Critical Care Medicine
DX: E10.65 Type 1 diabetes mellitus with hyperglycemia (principal)
CPT/HCPCS: 82530

== ENCOUNTER 2025-03-14 02:10 | Outpatient (CLI) | payer BC, SELFPAY ==
[2025-03-14 07:42] LABS: Glucose 114 mg/dL (74-106)
[2025-03-16 18:01] LABS: C-Peptide 0.1 ng/mL (1.1 - 4.4)
== END 2025-03-14 02:11 | disposition home or self-care (01) ==
LOC: LBO 02:10
PROVIDERS: PCP Physician Assistant; Visit Provider Registered Nurse Critical Care Medicine
DX: E10.65 Type 1 diabetes mellitus with hyperglycemia (principal)
CPT/HCPCS: 36415; 82533; 82947; 84681

== ENCOUNTER 2025-03-15 03:28 | Outpatient (CLI) | payer BC, SELFPAY ==
--- NOTE | 2025-03-15 11:09 | W.NUTRFU ---
Date of service: 03/15/25 Time of Service: 10:00 Nutrition Note NOTE: Miladys referred for nutrition visit regarding glucose mgt (hx of type I diabetes) and wt management - she states she is currently almost 30lbs heavier than her comfortable weight of ~180. She uses the Omni Pod pump with Humalog and feels she is comfortable with programming and making adjustments, but feels she wants to concentrate more on diet recommendations for her specific needs and goal to lose weight. We spent a majority of the time reviewing meal planning resources based on some parameters: about 1800kcals recommended with increased activity for caloric deficit, 180g total carbs with at least 25g fiber and no more than 18g added sugar. 135g protein with a good amount coming from higher fiber protein sources like legume, nuts and seeds, intact grains and 60g total fat with 18g or less as SFA's. She has my contact info should she have questions or desire follow up to review her intake. Reviewed goal is to match her intake with insulin adjustments and not eat based on insulin dosing. Time Spent in Nutritional Counseling and Treatment: 50minutes
== END 2025-03-15 03:29 | disposition home or self-care (01) ==
LOC: DS 03:28
PROVIDERS: PCP Physician Assistant; Visit Provider Dietitian, Registered
DX: E10.65 Type 1 diabetes mellitus with hyperglycemia (principal)
CPT/HCPCS: 00123; 97802

== ENCOUNTER 2025-07-05 17:23 | Outpatient (CLI) | payer BC, SELFPAY ==
[2025-07-05 17:38] LABS: TSH 1.26 uIU/mL (0.36-3.74)
== END 2025-07-05 17:24 | disposition home or self-care (01) ==
LOC: LBO 17:23
PROVIDERS: PCP Physician Assistant; Visit Provider Nurse Practitioner Family
DX: E03.9 Hypothyroidism, unspecified (principal)
CPT/HCPCS: 36415; 84439; 84443